=== PATIENT | male | born 1980 | race Caucasian/White ===

== ENCOUNTER 2020-08-04 12:59 | Outpatient (CLI) | payer OTHER, SELFPAY | END 2020-08-04 13:00 | disposition home or self-care (01) | LOC: ANHCOVIDVC 12:59 | PROVIDERS: PCP Family Medicine | DX: Z23 Encounter for immunization (principal) | CPT/HCPCS: 0001A; 91300 ==

== ENCOUNTER 2020-08-25 12:59 | Outpatient (CLI) | payer OTHER, SELFPAY | END 2020-08-25 13:00 | disposition home or self-care (01) | LOC: ANHCOVIDVC 12:59 | PROVIDERS: PCP Family Medicine | DX: Z23 Encounter for immunization (principal) | CPT/HCPCS: 0002A; 91300 ==

== ENCOUNTER → 2021-10-09 11:20 | Outpatient (CLI) | payer OTHER, SELFPAY ==
--- NOTE | ~2021-10-09 | XR_ITS ---
EXAMINATION: XR lumbar spine 2-3V DATE: 10/09/2021 12:21 INDICATION: Dorsalgia TECHNIQUE: Standing anteroposterior, lateral and coned-down lateral lumbosacral views of the lumbar s pine were obtained. COMPARISON: CT abdomen and pelvis dated 11/02/2012 FINDINGS: 9 mm lumbar levocurvature. Sagittal alignment is normal. Vertebral body and disc heights are normal. Moderate the lower lumbar facet osteoarthritis. Sacrum and bilateral sacroiliac joints are normal. De vice projecting over the left buttock with a pair of leads extending cephalad along the left side of the lower thoracic spine and beyond the cephalad margin of the lhsia-mg-odrl. IMPRESSION: 1. Mild lumbar levocurvature with moderate lower lumbar facet osteoarthritis. Reviewed, dictated and finalized at location B.
== END ==
PROVIDERS: PCP Family Medicine; Visit Provider Nurse Practitioner Family
DX: M54.9 Dorsalgia, unspecified (principal); M41.86 Other forms of scoliosis, lumbar region; M47.816 Spondylosis without myelopathy or radiculopathy, lumbar region
CPT/HCPCS: 72100

== ENCOUNTER → 2023-06-07 08:52 | Outpatient (CLI) | payer OTHER, SELFPAY ==
--- NOTE | ~2023-06-07 | XR_ITS ---
XR chest 2V DATE: 06/07/2023 09:29 INDICATION: Cough TECHNIQUE: 2 views COMPARISON: 02/02/2015 2 view chest FINDINGS: Leads extend along the left posterior abdomen and chest hairston into the cervical region. Normal heart size. The left hilum appears mildly prominent and mildly lobular in outline. Consider CT thorax to exclude left hilar mass lesion or adenopathy. No pulmonary infiltrate or consolidation, pleural effusion or pulmonary vascular congestion or pneumo thorax. Included skeletal structures are unremarkable. IMPRESSION: Mildly prominent and lobular left hilum; consider CT thorax with IV contrast material to evaluate for any possible left hilar mass lesion or adenopathy No active pulmonary disease Reviewed, dictated and finalized at location B. OTYPE CARPENTER IMPRESSION: Mildly prominent and lobular left hilum; consider CT thorax with IV contrast material to evaluate for any possible left hilar mass lesion or adeno declan No active pulmonary disease
== END ==
PROVIDERS: PCP Physician Assistant; Visit Provider Physician Assistant
DX: R05.9 Cough, unspecified (principal)
CPT/HCPCS: 71046

== ENCOUNTER → 2023-06-17 08:55 | Outpatient (CLI) | payer OTHER, SELFPAY ==
--- NOTE | ~2023-06-17 | CT_ITS ---
Clinical Indication: Cough CT Scan of the Chest with Contrast: Technique: Contiguous sections were acquired throughout the chest after intravenous administration of 75 cc of Omnipaque 350. Dose reduction technique was used on this scan by utilizing automated exposu re control and iterative reconstruction technique. The dose-length product (DLP) was 585.69 mGy-cm. Findings: There is no evidence of any significant mediastinal, hilar or axillary lymphadenopathy. The mediastin al soft tissues and vascular structures appear unremarkable. There is no evidence of pleural or pericardial effusion. There is patchy left lower lobe airspace consolidation, probable minimal involvement of the lingula a s well. Right lung clear. Images through the upper abdomen reveal no abnormalities. Impression: Patchy left lower lobe and lingular pneumonia. Reviewed, dictated and finalized at location . UNT SERVICE ASSOCIATE Impression: Patchy left lower lobe and lingular pneumonia.
== END ==
PROVIDERS: PCP Physician Assistant; Visit Provider Physician Assistant
DX: R05.9 Cough, unspecified (principal); R53.82 Chronic fatigue, unspecified; R93.89 Abnormal findings on diagnostic imaging of other specified body structures
CPT/HCPCS: 71260; Q9967

== ENCOUNTER 2025-05-05 10:59 | Observation (INO) | payer OTHER, SELFPAY ==
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
--- OUTSIDE RECORDS SUMMARY | 2025-02-16 11:30 | XMS_ITS ---
Author Organization [facility] [place] ([address]) Address [address] [place] [address] Care Team Providers Care Licensed Marriage And Family Therapist Name Role Phone Sandra HENDRIX, Alejandro Primary Care Provider UnavailAlma Sullivan Unavailable [phone] Nathanael Luna [phone] REASON FOR VISIT SCIT (Aeroallergen) Social History Sex Assigned At : Social History Observation Description Sex Assigned At Male Encounters Encounter Location Date Provider Diagnosis [facility] [address] [place] [address] 02/16/2025 Nathanael Luna Plan Of Treatment Next Appt Details Provider Name:Alma whitman, 08/03/2025 10:00:00 AM, [address] [facility], [address], [place], [address], Progress Notes * Nino SLOANDOB:1980 ( 45 yo M)Acc No.[id number]:02/16/2025 SCIT-Aeroallergen Patient: Nino KAPLAN Provider: Oanh Luna MD :1980 A ge:45 Y S ex:Male Date:02/16/2025 Address:[address] [place], [place] [id number] Pcp:Alejandro Flores MD Subjective: * Chief Complaints: * 1 . SCIT (Aeroallergen). * Medical History: Objective: * Vitals: Assessment: Plan: * Treatment: * Billing Information: * Visit Code: * Procedure Codes: * Electronic signature of Santos Luna MD, [facility] on 05/05/2025 at 01:51 PM POTABLE WATER TREATMENT OPERATOR Sign off status: Pending * Provider: Oanh Luna MD Date: 0 02/16/2025 [facility] mauricio/Lupe/eTransmitting on: 1 07/06/2024 01:51 PM POTABLE WATER TREATMENT OPERATOR
[2025-05-05] VITALS (23 sets, daily range): BP systolic 95–132; BP diastolic 56–88; PULSE 71–123; RESP 11–26; TEMP 36.5–36.8; O2SAT 89–100; BMI 30.5; BMI 30.9
--- NOTE | 2025-05-05 11:04 | ECG_ITS ---
Test Date: 2025-05-05 11:08:14 Measurements Intervals [place] Rate: 110 P: 7 KS: 124 QRS: -13 QRSD: 92 T: 18 QT: 316 QTc: 428 Interpretive Statements SINUS TACHYCARDIA POSSIBLE LEFT ATRIAL ENLARGEMENT LEFT VENTRICULAR HYPERTROPHY AND ST-T CHANGE BORDERLINE T WAVE ABNORMALITY- ANTEROLAT/INF LEADS ABNORMAL ECG No previous ECG available for comparison Electronically Signed On 05-05-2025 12:20:09 CROSS CUT SAW OPERATOR by Benito Farrar D.O.
--- NOTE | 2025-05-05 11:25 | PC.NURSE ---
Addendum entered by Leandra Villalta RN 05/05/25 12:38: pt did not take morphine, he took Opana/oxymorphone 10mg Original Note: 5 different pills around 1015 today, took 10-15 pills from each bottle. EMS called CT poison control and said 4 were opioids and 1 was atropine, poison control also reported pt may need a lot of Narcan. pt also took 2-4 pills of Zofran and 1 trazodone. total pills: hydromorphone 2mg morphine 10mg, 15-30 pills diphenoxylate/atropine 2.5mg levorphanol 2mg trazodone 100mg, 1 pill Zofran 8mg, 2-[address] poison control, [phone]
--- NOTE | 2025-05-05 11:31 | ED.GENADULT ---
HPI - General Adult General Chief complaint: Overdose Stated complaint: intentional OD History of Present Illness HPI narrative: 45-year-old male present to the emergency department for evaluation after an intentional drug overdose for a suicide attempt. Patient does have worsening depression secondary to complex regional pain syndrome. Patient states he does not currently have follow-up with a psychiatrist or a therapist. Patient states he took the medications at approximately 10:15 a.m. this morning which did include 1 trazodone and multiple of his opiates and atropine. Upon arrival to the emergency department patient was alert and appropriate. Patient's heart rate was in the 130s. Related Data Home Medications ?Medication ?Instructions ?Recorded ?Confirmed ?Last Taken ?Type buprenorphine HCl 750 mcg buccal 750 mcg buccal Q12H 06/23/19 05/05/25 05/05/25 History film ([place]) fluticasone propionate 50 1 spray intranasal DAILY 10/04/21 05/05/25 Unknown History mcg/actuation nasal spray,suspension levorphanol tartrate 2 mg tablet 2 mg PO .Q6HR PRN pain 10/04/21 05/05/25 05/05/25 History cetirizine 10 mg tablet (24Hour 5 mg PO DAILY 05/05/25 05/05/25 05/05/25 History Allergy) clonazepam 0.5 mg tablet 0.5 mg PO DAILY 05/05/25 05/05/25 05/05/25 History duloxetine 60 mg capsule,delayed 60 mg PO DAILY 05/05/25 05/05/25 05/05/25 History release (Cymbalta) Allergies Allergy/AdvReac Type Severity Reaction Status Date / Time amoxicillin AdvReac Intermediate Rash Verified 05/05/25 11:32 sumatriptan AdvReac Intermediate Depression Verified 05/05/25 11:32 shell fish Allergy Severe Anaphylactic Uncoded 05/05/25 11:32 Shock Review of Systems Review of Systems: All systems reviewed & are unremarkable except as noted in HPI and below PMFSH Past Medical History Medical History CRPS (complex regional pain syndrome type I) Low testosterone Hypogonadism Spinal cord stimulator status Plantar fasciitis Wartenberg syndrome Family History Family History (Updated 05/05/25 @ 15:45 by Caroline Carbajal RN) Father Diabetes mellitus Morbid obesity Acute myocardial infarction CHF (congestive heart failure) A-fib Chronic kidney disease Parkinson disease AD (Alzheimer's disease) Mother Diabetes mellitus Sibling No problems noted. Sibling multiple system failure. 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 EYES: PERRLA/EOMI, conjunctivae clear. NOSE: Normal no drainage EARS:TMS clear with good light reflex. THROAT: Pharynx clear, no exudate. NECK: Supple. No adenopathy, no masses. RESPIRATORY: Airway patent, respirations nonlabored. Clear to auscultation bilaterally, no rales, rhonchi, wheezing. CARDIOVASCULAR: Regular rate and rhythm without murmurs rubs or gallops. ABDOMINAL: Soft, nontender, nondistended, normal bowel sounds MUSCULOSKELETAL: Moves all extremities. Strength/ROM intact, No edema, No calf tenderness. NEURO: Alert. Cranial nerves II through XII intact. Good gait. Good coordination SKIN: Warm, dry. Normal Color PSYCHIATRIC: Flat affect Course Vital Signs Vital signs: Vital Signs Temperature 98.2 F 05/05/25 11:04 Pulse Rate 118 H 05/05/25 11:04 Respiratory Rate 21 H 05/05/25 11:04 Blood Pressure 131/85 05/05/25 11:04 Pulse Oximetry 93 05/05/25 11:04 Oxygen Delivery Room Air 05/05/25 11:04 Temperature 98.2 F 05/05/25 15:00 Pulse Rate 89 05/05/25 16:00 Respiratory Rate 11 L 05/05/25 15:00 Blood Pressure 110/88 05/05/25 15:00 Pulse Oximetry 93 05/05/25 16:08 Oxygen Delivery Nasal Cannula 05/05/25 16:08 Oxygen Flow Rate 2 05/05/25 16:08 MDM MDM Narrative Medical decision making narrative: 45-year-old male presents emergency department for evaluation after having intentional overdose. Patient is currently afebrile and leukocytosis hemoglobin of 15.7. Patient has INR of 1.0. No significant acute abnormalities on his CMP UA was negative for infection. Patient was negative for salicylates and Tylenol. Ethanol was negative. Patient did take multiple opioids. Patient was negative for influenza RSV and for COVID. Patient did require 2 mg of IV Narcan by EMS were quiet a 2nd dose here this was approximately 1.5 hours after his initial dose. 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 Case was discussed with hospitalist. Patient states he did take these medications in attempt to harm self and patient was suicidal. Differential Diagnosis Differential Diagnosis: Intentional overdose, opiate overdose, atropine overdose, salicylate overdose, acetaminophen overdose Lab Data 05/05/25 11:34 05/05/25 11:34 Labs: Lab Results 05/05/25 05/05/25 05/05/25 Range/Units 11:34 11:34 11:34 WBC 7.3 (4.5-10.0) K/mm3 RBC 4.98 (4.6-6.20) M/mm3 Hgb 15.7 (14.0-18.0) g/dL Hct 45.5 (42.0-52.0) % MCV 91.4 (80-100) fl MCH 31.5 (26-34) pg MCHC 34.5 (32-36) g/dl RDW 13.1 (11.5-14.5) % Plt Count 243 (150-375) k/mm3 MPV 9.7 (7.4-10.4) fl Immature Gran % (Auto) 0.5 (0-0.5) % Neut % (Auto) 77.3 H (45.5-73.1) % Lymph % (Auto) 11.4 L (18.3-44.2) % Green % (Auto) 7.8 (2.6-8.5) % Eos % (Auto) 2.5 (0-4.4) % Baso % (Auto) 0.5 (0.2-1.2) % Lymph # (Auto) 0.83 L (0.9-3.2) K/mm3 Green # (Auto) 0.6 (0.1-0.6) K/mm3 Eos # (Auto) 0.2 (0-0.3) K/mm3 Baso # (Auto) 0.0 (0.0-0.1) K/mm3 Abs Immat Gran (auto) 0.04 H (0.00-0.031) K/mm3 Absolute Neuts (auto) 5.7 (1.3-6.7) K/mm3 Absolute Nucleated RBC 0.000 (0.0-0.012) K/mm3 Nucleated RBC % 0.0 (0.0-0.2) % PT 13.5 (11.1-14.7) Seconds INR 1.0 APTT 29.0 (22.3-36.8) Seconds Sodium 138 (137-145) mmol/L Potassium 3.4 (3.4-5.0) mmol/L Chloride 104 (98-107) mmol/L Carbon Dioxide 24 (22-30) mmol/L Anion Gap 10 (4-12) mmol/L BUN 15 (9-20) mg/dL Creatinine 0.96 (0.7-1.3) mg/dL Estim Creat Clear Calc 88 ml/min Estimated GFR > 60 (59 - ) Glucose 151 H (65-110) mg/dL Lactic Acid 1.6 (0.7-2.0) mmol/L Calcium 9.0 (8.4-10.2) mg/dL Total Bilirubin 0.8 (0.2-1.3) mg/dL AST 24 (17-59) U/L ALT 28 (6-50) U/L Alkaline Phosphatase 71 (38-126) U/L Total Protein 7.9 (6.3-8.2) g/dL Albumin 4.2 (3.5-5.1) g/dL Urine Color (Yellow) Urine Appearance (Clear) Urine pH (5.0-9.0) Ur Specific Bailey (1.001-1.035) Urine Protein (Negative) mg/dL Urine Glucose (UA) (Negative) mg/dL Urine Ketones (Negative) mg/dL Ur Blood (Man) (Negative) Urine Nitrate (Negative) Urine Bilirubin (Negative) Urine Urobilinogen (<2.0) mg/dL Leukocyte Esterase Rfl (Negative) BECKY/UL Salicylates < 1.0 L Cancelled (2-20) mg/dL Urine Opiates Screen (Negative) Urine Methadone Screen (Negative) Acetaminophen Cancelled < 10 L Ur Barbiturates Screen (Negative) Ur Phencyclidine Scrn (Negative) Ur Amphetamine Screen (Negative) U Benzodiazepines Scrn (Negative) Urine Cocaine Screen (Negative) U Cannabinoids Screen (Negative) Ethyl Alcohol < 10 (<10) mg/dL Influenza A (RT-PCR) (Negative) Influenza B (RT-PCR) (Negative) RSV (RT-PCR) (Negative) SARS-CoV-2 RNA (RT-PCR) (Negative) 05/05/25 05/05/25 Range/Units 11:36 12:05 WBC (4.5-10.0) K/mm3 RBC (4.6-6.20) M/mm3 Hgb (14.0-18.0) g/dL Hct (42.0-52.0) % MCV (80-100) fl MCH (26-34) pg MCHC (32-36) g/dl RDW (11.5-14.5) % Plt Count (150-375) k/mm3 MPV (7.4-10.4) fl Immature Gran % (Auto) (0-0.5) % Neut % (Auto) (45.5-73.1) % Lymph % (Auto) (18.3-44.2) % Green % (Auto) (2.6-8.5) % Eos % (Auto) (0-4.4) % Baso % (Auto) (0.2-1.2) % Lymph # (Auto) (0.9-3.2) K/mm3 Green # (Auto) (0.1-0.6) K/mm3 Eos # (Auto) (0-0.3) K/mm3 Baso # (Auto) (0.0-0.1) K/mm3 Abs Immat Gran (auto) (0.00-0.031) K/mm3 Absolute Neuts (auto) (1.3-6.7) K/mm3 Absolute Nucleated RBC (0.0-0.012) K/mm3 Nucleated RBC % (0.0-0.2) % PT (11.1-14.7) Seconds INR APTT (22.3-36.8) Seconds Sodium (137-145) mmol/L Potassium (3.4-5.0) mmol/L Chloride (98-107) mmol/L Carbon Dioxide (22-30) mmol/L Anion Gap (4-12) mmol/L BUN (9-20) mg/dL Creatinine (0.7-1.3) mg/dL Estim Creat Clear Calc ml/min Estimated GFR (59 - ) Glucose (65-110) mg/dL Lactic Acid (0.7-2.0) mmol/L Calcium (8.4-10.2) mg/dL Total Bilirubin (0.2-1.3) mg/dL AST (17-59) U/L ALT (6-50) U/L Alkaline Phosphatase (38-126) U/L Total Protein (6.3-8.2) g/dL Albumin (3.5-5.1) g/dL Urine Color Yellow (Yellow) Urine Appearance Clear (Clear) Urine pH 6.0 (5.0-9.0) Ur Specific Bailey 1.011 (1.001-1.035) Urine Protein Negative (Negative) mg/dL Urine Glucose (UA) Negative (Negative) mg/dL Urine Ketones Negative (Negative) mg/dL Ur Blood (Man) Negative (Negative) Urine Nitrate Negative (Negative) Urine Bilirubin Negative (Negative) Urine Urobilinogen 0.2 (<2.0) mg/dL Leukocyte Esterase Rfl Negative (Negative) BECKY/UL Salicylates (2-20) mg/dL Urine Opiates Screen Positive A (Negative) Urine Methadone Screen Negative (Negative) Acetaminophen Ur Barbiturates Screen Negative (Negative) Ur Phencyclidine Scrn Negative (Negative) Ur Amphetamine Screen Negative (Negative) U Benzodiazepines Scrn Negative (Negative) Urine Cocaine Screen Negative (Negative) U Cannabinoids Screen Negative (Negative) Ethyl Alcohol (<10) mg/dL Influenza A (RT-PCR) Negative (Negative) Influenza B (RT-PCR) Negative (Negative) RSV (RT-PCR) Negative (Negative) SARS-CoV-2 RNA (RT-PCR) Negative (Negative) Critical Care Time Critical Care Time Indication: Overdose Time Type: Intermittent Initial evaluation, discuss w/ involved parties, attempting to gather old records: 10 minutes Documenting medical record: 10 minutes Review of results (EKG's, labs, imaging): 5 minutes Serial repeat bedside evaluation: 10 minutes Discussing case with multiple memebers of the care team and consultants: 5 minutes Total Critical Care Time: 40 Discharge Plan Discharge Clinical Impression: Intentional overdose Patient Disposition: Still a Patient Condition: Critical
[2025-05-05 11:51] LABS: Hematocrit 45.5 % (42.0-52.0); Hemoglobin 15.7 g/dL (14.0-18.0); Immature Granulocyte Percent A 0.5 % (0-0.5); Lymphocytes Absolute Auto 0.83 K/mm3 (0.9-3.2); Mean Corpuscular HGB Conc 34.5 g/dl (32-36); Mean Corpuscular Hemoglobin 31.5 pg (26-34); Mean Corpuscular Volume 91.4 fl (80-100); Nucleated Red Blood Cells Absolute Auto 0.000 K/mm3 (0.0-0.012); Nucleated Red Blood Cells Perc 0.0 % (0.0-0.2); Platelet Count Result 243 k/mm3 (150-375); Red Blood Count 4.98 M/mm3 (4.6-6.20); White Blood Count 7.3 K/mm3 (4.5-10.0)
[2025-05-05] MEDS: NALOXONE HCL INJ 2 MG/2 ML AMP IV PUSH (12:01)
[2025-05-05 12:02] LABS: Alanine Aminotransferase 28 U/L (6-50); Albumin Level 4.2 g/dL (3.5-5.1); Alkaline Phosphatase 71 U/L (38-126); Anion Gap 10 mmol/L (4-12); Aspartate Amino Transferase 24 U/L (17-59); Bilirubin,Total 0.8 mg/dL (0.2-1.3); Blood Urea Nitrogen 15 mg/dL (9-20); Calcium 9.0 mg/dL (8.4-10.2); Carbon Dioxide 24 mmol/L (22-30); Chloride 104 mmol/L (98-107); Estimated CRCL calculation 88 ml/min; Estimated Glomerular Filt Rate > 60; Glucose 151 mg/dL (65-110); Potassium 3.4 mmol/L (3.4-5.0); Sodium 138 mmol/L (137-145); Total Protein 7.9 g/dL (6.3-8.2)
[2025-05-05 12:03] LABS: Acetaminophen < 10 ug/mL (10-30); INR 1.0; Prothrombin Time 13.5 Seconds (11.1-14.7); Salicylate < 1.0 mg/dL (2-20)
[2025-05-05 12:04] LABS: Partial Thromboplastin Time 29.0 Seconds (22.3-36.8)
[2025-05-05 12:29] LABS: Influenza A QL RT-PCR Negative (Negative); Influenza B QL RT-PCR Negative (Negative); RSV RNA, RT-PCR Negative (Negative); SARS-CoV-2 RNA PCR Negative (Negative)
[2025-05-05 12:30] LABS: Add Urine Microscopic? NO; Appearance Urine Clear (Clear); Glucose Urine UA Negative (Negative); Leukocyte Esterase Ur Negative LEU/UL (Negative); Nitrate Urine Negative (Negative); Specific Grav Ur 1.011 (1.001-1.035)
--- NOTE | 2025-05-05 12:38 | PC.NURSE ---
this RN called [place] poison control at 1230 and spoke to April. 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 the oxymorphone, hydrocodone, and levorphanol all have a peak of 1hr max. was advised to watch pt until he became his normal/stable self
[2025-05-05] MEDS: LACTATED RINGERS 1,000 ML 999 ML (12:42)
[2025-05-05 13:03] LABS: Cannabinoid Screen Urine Negative (Negative)
--- OUTSIDE RECORDS SUMMARY | 2025-05-05 13:51 | XMS_ITS | Clinical Summary ---
Author Organization [facility] Address [address] [place] [address] Care Team Providers Care Radio Presenter Name Role Phone Alejandro Flores MD Primary Care Provider Source Comments [facility],non-owned Affiliates and Associated Physician Practices is amultiple site organization consisting of ambulatory clinics and hospital sitesin [place], [place]. This disclosure is being madepursuant to the Care Everywhere program and may not contain all information available regarding this patient. Last updated 18.[facility] Allergies Active Allergy Reactions Criticality Noted Date Comments Augmentin GI Discomfort 04/26/2016 Medications * This document contains information received from the source organization and may not represent a complete record from that organization. * Be aware that medications may not be up to date on this document. Alwaysverify current medications with the patient. 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 Gender Identity Not on file Sexual Orientation Not on file Last Filed Vital Signs Vital Sign Reading Time Taken Comments Blood Pressure 130/82 04/26/2016 11:33 AM WATERWORKS PUMP STATION OPERATOR Pulse 120 04/26/2016 11:33 AM WATERWORKS PUMP STATION OPERATOR Temperature 36.5 C (97.7 F) 04/26/2016 11:33 AM WATERWORKS PUMP STATION OPERATOR Respiratory Rate 16 04/26/2016 11:33 AM WATERWORKS PUMP STATION OPERATOR Oxygen Saturation 96% 04/26/2016 11:33 AM WATERWORKS PUMP STATION OPERATOR Inhaled Oxygen Concentration - - Weight 81.6 kg (180 lb) 04/26/2016 11:33 AM WATERWORKS PUMP STATION OPERATOR Height 177.8 cm (5' 10) 04/26/2016 11:33 AM WATERWORKS PUMP STATION OPERATOR Body Mass Index 25.83 04/26/2016 11:33 AM WATERWORKS PUMP STATION OPERATOR Plan of Treatment Health Maintenance Due Date Last Done Comments COLOGUARD (AGES 45-75) - COL ON CA SCREENING 1980 COLON MONITORING 1980 COLONOSCOPY - COLON CA SCREENING 1980 CT COLONOGRAPHY - COLON CA SCREENING 1980 Colorectal Cancer Screening 1980 FIT - COLON CA SCREENING 1980 FLEX SIG - COLON CA SCREENING 1980 LIPID TESTING 1980 HIV SCREENING 01/07/1995 HEPATITIS C SCREENING 01/03/1998 DTAP/TDAP/TD VACCINES (1 - Tdap) 01/07/1999 HEPATITIS B VACCINE (1 of 3 - 19+ 3-dose series) 01/07/1999 HPV VACCINE (1 - 3-dose SCDM series) 01/07/2007 DEPRESSION SCREENING 05/20/2024 COVID-19 VACCINE (1 - 2024-2 6 season) 2025 INFLUENZA VACCINE (#1) 2025 ZOSTER VACCINE (1 of 2) 01/07/2030 HIB VACCINE Aged Out No longer eligi ble based on patient's age to complete this topic MENINGOCOCCAL (Group B) VACC INE SHARED DECISION-MAKING Aged Out No longer eligibl e based on patient's age to complete this topic MENINGOCOCCAL GROUPS A/C/Y/W VACCINE Aged Out No longer eligible b ased on patient's age to complete this topic PNEUMOCOCCAL VACCINE Aged Out No long er eligible based on patient's age to complete this topic Insurance [employer] Address: [facility] [id number] [place] [address] Care Teams Radio Presenter Relationship Specialty Start Date End Date Alejandro Flores MD [address] [place] [address] PCP - General Family Medicine 04/26/16
--- OUTSIDE RECORDS SUMMARY | 2025-05-05 13:51 | XMS_ITS | Clinical Summary ---
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 Social History Tobacco Use Types Packs/Day Years Used Date Smoking Tobacco: Never Assessed Sex and Gender Information Value Date Recorded Sex Assigned at Not on file Legal Sex Male 1:28 PM CDT Gender Identity Not on file Sexual Orientation Not on file Plan of Treatment Health Maintenance Due Date Last Done Comments Hepatitis C Virus (HCV) Screening 1980 TdaP Immunization 1980 Hepatitis B Immunization (1 of 3 - 19+ 3-dose series) 01/07/1999 Cologuard 01/07/2025 Colonoscopy 01/07/2025 Colorectal Cancer Screening 01/07/2025 Immunochemical Fecal Occult Blood 01/07/2025 Influenza Immunization (#1) 2025 SARS-COV-2 Immunization ( season) 2025 Respiratory Syncytial Virus (RSV) Immunization (Adult) (1 - 1-dose 75+ series) 01/07/2055 Human Papillomavirus (HPV) Immunization (No Doses Required) Completed Meningococcal Immunization (ACWY) Aged Out No longer eligible based on patient's age to complete this topic Pneumococcal Immunization Combined Aged Out No longer eligible based on patient's age to complete this topic Rotavirus Immunization Aged Out No lo nger eligible based on patient's age to complete this topic Insurance [employer] C[employer] Care Teams Wire Rigger Relationship Specialty Start Date End Date Provider, None [place] PCP - General 01/12/16
--- OUTSIDE RECORDS SUMMARY | 2025-05-05 13:51 | XMS_ITS | Clinical Summary ---
Author Organization [facility] Address [address] [place] [id number] Care Team Providers Care Belt Turner Name Role Phone Victor Hugo Esteves NP Unavailable [phone] Chris England MD Unavailable Alejandro Flores MD Primary Care Provider Allergies Active Allergy Reactions Criticality Noted Date Comments Amoxicillin-Pot Clavulanate Stomach upset Low 04/26 Other Sneezing Low 12/26/2021 Seasonal Shellfish Containing Products Hives,Itching Medium [id number] Antimigraine Agents Anxiety Low 0 12/31/2023 Medications gabapentin (NEURONTIN) 600 mg tablet Take 1 tablet (600 mg total) by mouth 2 (two) times a day Active fluticasone propionate (FLONASE) 50 mcg/actuation nasal spray Administer 1 spray into each nostril as needed for rhinitis Active Nurtec ODT tablet,disintegra ting DISSOLVE 1 TABLET BY MOUTH NEEDED FOR MIGRAINE HEADACHE A SINGLE DOSE 11/30/[address] (CYMBALTA) 30 mg capsule Take 1 capsule (30 mg total) by mouth daily 01/10/20 23 Active albuterol HFA (PROVENTIL HFA,VENTOLIN HFA,PROAIR HFA) 90 mcg/actuation inhaler every 6 hours Active azelastine (ASTELIN) 137 mcg (0.1 %) nasal spray every 12 hours 10/21/19 24 Active testosterone cypionate (DEPO-TESTOTERONE ) 200 mg/mL injection INJECT 1 ML INTO THE MUSCLE EVERY OTHER WEEK 10/24/19 24 Active EpiPen 2-Rudy 0.3 mg/0.3 mL auto-injection syringe as directed intramuscularly once for 1 days 10/21/19 24 Active ProChamber spacer USE DIRECTED PER ASTHMA ACTION PLAN 10/22/19 24 Active fexofenadine (Haritha Allergy) 60 mg tablet daily Active DULoxetine DR (CYMBALTA) 60 mg capsule Take 1 capsule (60 mg total) by mouth every morning 12/02/19 24 Active montelukast (SINGULAIR) 10 mg tablet Take 1 tablet (10 mg total) by mouth daily 03/10/20 24 Active cyclobenzaprine (FLEXERIL) 10 mg tablet Take 1 tablet (10 mg total) by mouth 3 (three) times a day as needed for muscle spasms 03/12/20 Active Trelegy Ellipta 200-62.5-25 mcg inhaler 1 puff daily Active famotidine (PEPCID) 40 mg tablet 0.5 tablets (20 mg total) 08/24/19 25 Active levorphanol (LEVODROMORAN) 2 mg tabletIndications :Complex regional pain syndrome type 1 of right upper extremity,Chronic pain syndrome,Neuralgi a Take 1 tablet (2 mg total) by mouth 2 (two) times a day as needed for pain 60 tablet 10/06/19 25 Active buprenorphine (Belbuca) 750 mcg film buccal filmIndications:C hronic pain syndrome,Complex regional pain syndrome type 1 of right upper extremity,Neuralg ia Apply 1 each (750 mcg total) to cheek every 12 (twelve) hours 60 each 1 04/08/20 25 2025 Active clonazePAM (KlonoPIN) 0.25 mg disintegrating tablet DISSOLVE ONE TABLET ON THE TONGUE ONCE DAILY. 03/26/20 25 Active benzonatate (TESSALON) 200 mg capsuleIndication s:Lower respiratory infection (e.g., bronchitis, pneumonia, pneumonitis, pulmonitis) Take 1 capsule (200 mg total) by mouth 3 (three) times a day as needed for cough 30 capsule 05/03/20 25 Active azithromycin (ZITHROMAX) 250 mg tabletIndications :Lower respiratory infection (e.g., bronchitis, pneumonia, pneumonitis, pulmonitis) Take 2 tablets the first day, then 1 tablet daily for 4 days. 6 tablet 05/03/20 25 Active doxycycline (VIBRAMYCIN) 100 mg capsuleIndication s:Lower respiratory infection (e.g., bronchitis, pneumonia, pneumonitis, pulmonitis) Take 1 tablet/capsule (100 mg total) by mouth 2 (two) times a day for 5 days 10 tablet/caps ule 05/03/20 25 2024 Active clonazePAM (KlonoPIN) 0.5 mg tablet Take 1 tablet (0.5 mg total) by mouth 3 (three) times a day Taking 0.25 in am and in the pm. 05/05/20 20 2024 Disconti nued(Alt ernate therapy) benzonatate (TESSALON) 200 mg capsuleIndication s:Acute viral syndrome Take 1 capsule (200 mg total) by mouth 3 (three) times a day as needed for cough 30 capsule 12/31/19 24 2024 Disconti nued(The rapy complete d) methylPREDNISolon e (Medrol, Rudy,) 4 mg DosepackIndicatio ns:Lower respiratory infection (e.g., bronchitis, pneumonia, pneumonitis, pulmonitis) follow package directions 1 packet 05/03/20 25 2024 Disconti nued(Alt ernate therapy) Active Problems Problem Noted Date Diagnosed Date Acute cough 04/30/2023 Assessment & Plan (04/30/2023 12:03 PM SITE PROMOTION AGENT): Vital signs stable, no respiratory distress, nontoxic appearance, lungs CTAB on exam, 96% on RA Chest xray showing mild atelectasis and scarring noted in the mid to lower right lung. No definite evidence of focal consolidation. Pt given incentive spirometer Supportive care, rest, clear sugar-free fluids (water), steam inhalation/humidifier Tessalon prn Continue prednisone as prescribed Continue albuterol inhaler prn F/u with PCP for repeat chest xray if no improvement with medications or worsening symptoms Left-sided low back pain without sciatica 2020 Long-term current use of opiate analgesic 2017 Right arm pain 06/03/2017 Right hand pain 06/03/2017 Complex regional pain syndro me type 1 of right upper extremity 06/03/2017 Depression, recurrent 06/03/2017 Anxiety 06/03/2017 Constipation due to opioid therapy 06/03/2017 Undifferentiated somatoform disorder 01/20/2016 Injury of ulnar nerve 08/09/2015 Injury of radial nerve 08/09/2015 Injury of cutaneous sensory nerve at forearm lev el 08/09/2015 Complex regional pain syndrome of upper extremit y 11/17/2014 Memory impairment 10/26/2014 Pain in wrist 10/26/2014 Chronic pain 10/26/2014 Pain in extremity 10/26/2014 Neuralgia 10/26/2014 Encounters Date Type Department Care Team Description 05/03/2025 9:05 AM SITE PROMOTION AGENT Ancillary Procedure [facility] at [address] [phone] Acute viral syndrome 05/03/2025 8:45 AM SITE PROMOTION AGENT Office Visit [facility] at [address] [phone] Carlotta Mcintosh NP Lower respiratory infection (e.g., bronchitis, pneumonia, pneumonitis, pulmonitis) (Primary Dx); Pneumonia of left upper lobe due to infectious organism 05/03/2025 Results Follow-Up [facility] at [address] [phone] Carlotta Mcintosh NP XR Chest PA Lateral 2 Views 03/25/2025 11:30 AM SITE PROMOTION AGENT - 03/25/2025 11:59 PM SITE PROMOTION AGENT Hospital Encounter [facility] [address] [place] [address] Victor Hugo Esteves NP Long-term current use of opiate analgesic (Primary Dx); Right arm pain; Complex regional pain syndrome type 1 of right upper extremity; Chronic pain syndrome Discharge Disposition: Discharge to home or self care from Last 3 Months Immunizations Immunization Administration Dates Next Due Influenza, Quadrivalent, Jennifer l Culture-based MDCK, Preservative Free, Antibiotic Free, Intramuscular 06/18/2019 Influenza, Trivalent, IM (MDV) 03/11/2014,2011 Influenza, Trivalent, Preservative Free, Intramu scular 05/09/2016,04/08/2015 Surgical History Surgery Date Site/Laterality Comments WRIST SURGERY SPINAL CORD STIMULATOR IMPLANT trial in 2016-did not help and removal WISDOM TOOTH EXTRACTION Medical History Medical History Date Comments CRPS (complex regional pain syndrome type I) Anxiety Depression Extremity pain right arm Headache Neck pain Reflex sympathetic dystrophy Family History Medical History Relation Name Comments Diabetes Father Diabetes Mother Relation Name Status Comments Father Mother Alive Social History Tobacco Use Types Packs/Day Years Used Date Smoking Tobacco: Never Passive Smoke Exposure: Never Smokeless Tobacco: Never Alcohol Use Standard Drinks/Week Comments No 0 (1 standard drink = 0.6 oz pur e alcohol) PHQ-2 Answer Date Recorded PHQ-2 Score 2 02/19/2019 Sex and Gender Information Value Date Recorded Sex Assigned at Not on file Legal Sex Male 9:21 PM SITE PROMOTION AGENT Gender Identity Male 04/04/2020 4:09 PM SITE PROMOTION AGENT Sexual Orientation Straight 04/04/2020 4: 09 PM SITE PROMOTION AGENT Last Filed Vital Signs Vital Sign Reading Time Taken Comments Blood Pressure 128/70 05/03/2025 8:37 AM SITE PROMOTION AGENT Pulse 113 05/03/2025 8:37 AM SITE PROMOTION AGENT Temperature 36.4 C (97.5 F) 05/03/2025 8:37 AM SITE PROMOTION AGENT Respiratory Rate 28 05/03/2025 8:37 AM SITE PROMOTION AGENT Oxygen Saturation 96% 05/03/2025 8:37 AM SITE PROMOTION AGENT Inhaled Oxygen Concentration - - Weight 96.6 kg (213 lb) 05/03/2025 8:37 AM SITE PROMOTION AGENT Height 177.8 cm (5' 10) 05/03/2025 8:37 AM SITE PROMOTION AGENT Body Mass Index 30.56 05/03/2025 8:37 AM SITE PROMOTION AGENT Plan of Treatment Health Maintenance Due Date Last Done Comments Colon Cancer Screening-Colonoscopy 1980 Hepatitis C Screening 1980 DTaP/Tdap/Td Vaccine (1 - Tdap) 01/07/1991 Varicella Vaccines (1 of 2 - 13+ 2-dose series) 01/07/1993 Hepatitis B Screening 01/07/1998 Regular Well Visit/Exam 18-64 01/07/1998 HPV Vaccines (1 - 3-dose SCDM series) 01/07/2007 Depression Screening 02/20/2020 02/19/2019, 02/19/2019, 09/16/2018, Additional history exists Covid-19 Vaccine ( season) 2025 08/25/2020, 08/04/2020 Influenza Vaccine (#1) 2025 , 05/09/2016, 04/08/2015, Additional history exists Pneumococcal vaccine <65 Aged Out 12/02/2023 No longer eligible based on patient's age to complete this topic Goals Goal Patient Goal Type Associated Problems Recent Progress Patient-Stated? Author Increase physical activity Exercise Connie Lassiter, RN Note: He was encouraged to continue to do as much as possible with his right arm. Medical Devices Implanted Type Area Toll Service Observer Device Identifier Shelf Expiration Date Model / Serial / Lot Lead 74cm Avista Mri Safe - [id number] - [id number] Implanted:Qty: 1 on 06/30/2020 by Chris England MD at [facility] N/A: Spine Cervical [employer] Lucio 04/07/2022 SC-2408-7 4 / [id number] / Lead 74cm [employer]ista Mri Safe - [id number] - [id number] Implanted:Qty: 1 on 06/30/2020 by Chris England MD at [facility] N/A: Spine Cervical [employer] Lucio 04/07/2022 SC-2408-7 4 / [id number] / [employer] Sc-4319 Clik X Mri [place] Lead - [id number] Implanted:Qty: 1 on 06/30/2020 by Chris England MD at [facility] N/A: Back [employer] Lucio 02/12/2022 SC-4319 / / [id number] [employer] Sc-1200 Precison Montage Kit Generator Neurostimulator Sterile Disposable Latex Free - [id number] - [id number] Implanted:Qty: 1 on 06/30/2020 by Chris England MD at [facility] N/A: Back [employer] Lucio 05/04/2022 SC-1200 / [id number] / [employer] Lucio Sc-6412-03 Precision Charge Kit Neurostimulator - [id number] - [id number] Implanted:Qty: 1 on 06/30/2020 by Chris England MD at [facility] N/A: Back [employer] Lucio SC-6412-0 3 / [id number] / Procedures Procedure Name Priority Date/Time Associated Diagnosis Comments XR CHEST PA LATERAL 2 VIEWS Schedule SEAN, Read SEAN (Appt Today, Awaiting Results) 05/03/2025 9:11 AM SITE PROMOTION AGENT Acute viral syndrome POC INFLUENZA A/B, COVID-19 ANTIGEN Routine 05/03/2025 9:01 AM SITE PROMOTION AGENT Lower respiratory infection (e.g., bronchitis, pneumonia, pneumonitis, pulmonitis) from Last 3 Months Results * XR Chest PA Lateral 2 Views (05/03/2025 9:11 AM SITE PROMOTION AGENT) Anatomical Region Laterality Modality Body, Chest N/A Digital Radiogra phy 05/03/2025 11:0 8 AM SITE PROMOTION AGENT Impressions 05/03/2025 11:08 AM SITE PROMOTION AGENT Left upper lobe pneumonia. Recommend six-week radiographic follow-up to ensure resolution. Electronically signed by: Dmitri Nelson MD Narrative 05/03/2025 11:08 AM SITE PROMOTION AGENT EXAMINATION: XR CHEST PA LATERAL 2 VIEWS HISTORY: cough TECHNIQUE: Frontal and lateral views of the chest. COMPARISON: 04/30/2023 FINDINGS: New extensive opacities throughout the left upper lobe likely representing pneumonia. Recommend short-term follow-up to ensure resolution. No sizable pleural effusion or pneumothorax. The heart size is normal. Procedure Note Dmitri Nelson MD - 05/03/2025 EXAMINATION: XR CHEST PA LATERAL 2 VIEWS HISTORY: cough TECHNIQUE: Frontal and lateral views of the chest. COMPARISON: 04/30/2023 FINDINGS: New extensive opacities throughout the left upper lobe likely representing pneumonia. Recommend short-term follow-up to ensure resolution. No sizable pleural effusion or pneumothorax. The heart size is normal. IMPRESSION: Left upper lobe pneumonia. Recommend six-week radiographic follow-up to ensure resolution. Electronically signed by: Dmitri Nelson MD Carlotta Mcintosh PARTS ADVISOR IMG XR PROCEDURES Final Result * POC Influenza A/B, COVID-19 antigen (05/03/2025 9:01 AM SITE PROMOTION AGENT) Influenza A Ag, POC Negative Negative [facility] Influenza B Ag, POC Negative Negative [facility] COVID-19 Ag POC Presumptive Negative Presumptive Negative, Invalid [facility] Nasal 05/03/2025 9:01 AM SITE PROMOTION AGENT Carlotta Mcintosh NP POINT OF CARE TEST ORDERABLES Final Result [facility] [address] from Last 3 Months Insurance [facility] CIGNA CIGNA [facility] CHOICE PLUS CIGNA Care Teams Belt Turner Relationship Specialty Start Date End Date Alejandro Flores MD [address] [place], [place] [phone] PCP - General Family Medicine 12/03/24 [place] [address] [address] [place] [address] Nurse Practitioner Pain Management 03/25/24 [place] [address] [address] [place] [address] Consulting Physician Pain Management 07/22/24
--- OUTSIDE RECORDS SUMMARY | 2025-05-05 13:51 | XMS_ITS | Patient Health Record ---
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) TRIPTAN FAMILY (uncoded) anxiety, hallucinations Allergy Active amoxicillin Amoxicillin stomach upset Drug Allergy Active Results Component Value Reference Range Notes Spirometry Reviewed date:02/18/2025 08:48:53 AM Interpretation:Normal Performing Lab: Notes/Report: Normal SpiroPreBronchodilator_FVC 4.23 SpiroPostBronchodilator_FEF25_75 0 SpiroPreBronchodilator_FEF25_75 5.52 SpiroPreBronchodilator_FEV1 3.75 SpiroPrecentPredictionPost_FEF25_75 0 SpiroPrecentPredictionPost_FEV1 0 SpiroPrecentPredictionPost_FEV1_OVER_FVC 0 SpiroPrecentPredictionPost_FVC 0 SpiroPrecentPredictionPre_FEF25_75 136.3 SpiroPrecentPredictionPre_FEV1 92.1 SpiroPrecentPredictionPre_FEV1_OVER_FVC 110 SpiroPrecentPredictionPre_FVC 83.6 SpiroPredicted_FEF25_75 4.05 SpiroPreBronchodilator_FEV1_OVER_FVC 88.56 SpiroPreBronchodilator_PEF 9.92 SpiroPostBronchodilator_FVC 0 SpiroPostBronchodilator_FEV1 0 SpiroPostBronchodilator_FEV1_OVER_FVC 0 SpiroPostBronchodilator_PEF 0 SpiroPredicted_FVC 5.06 SpiroPredicted_FEV1 4.07 SpiroPredicted_FEV1_OVER_FVC 80.54 SpiroPredicted_PEF 9.15 Reason For Referral No Information Medications Medication SIG (Take, Route, Frequency, Duration) Notes Start Date End Date Status Belbuca 750 MCG Buccal; Duration: 30 Days Active clonazePAM 0.5 MG TAKE 1 TABLET BY MOUTH IN THE MORNING AND HALF A TABLET BY MOUTH IN THE EVENING NEEDED Oral; Duration: 30 Days Active SIT (Traditional) variable - see record per schedule subcutaneous per schedule; Duration: 999 days 02/16/2025 Active Testosterone Cypionate 200 MG/ML Intramuscular; Duration: 70 Days Active Montelukast Sodium 10 MG TAKE 1 TABLET BY MOUTH 60 MINUTES PRIOR TO SCIT INSTRUCTED; Duration: 90 Active Nurtec 75 MG 1 tablet on the tongue and allow to dissolve Orally 02/16/2025 Active Albuterol Sulfate HFA 108 (90 Base) MCG/ACT INHALE 2 PUFFS BY MOUTH EVERY 4 HOURS NEEDED; Duration: 16 Active Gabapentin 600 MG 1 tablet Orally Once a day Active SIT (Cluster) variable - see record per schedule subcutaneous per schedule; Duration: 999 06/30/2024 Not-Taking EpiPen 2-Karson 0.3 MG/0.3ML as directed intramuscularly once; Duration: 1 days 10/21/2023 Active Advair HFA 115 MCG-21 MCG 2 PUFF(S) INHALED 2 TIMES A DAY; Duration: 30 DAYS *Please review and pick correct strength-formula tion from [employer] options. If intended option is not shown, discontinue and re-order from Quick Search* 10/21/2023 Not-Taking Fluticasone Propionate 50 MCG/ACT 1 spray(s) in each nostril once a day Active EPIPEN 2-KARSON 0.3 mg as directed intramuscularly once; Duration: 1 days Active Haritha Allergy 60 MG 3 tab(s) orally once a day Active FLUTICASONE NASAL 50 mcg/inh 1 spray(s) in each nostril once a day Active HARITHA ALLERGY 60 mg 3 tab(s) orally once a day Active Azelastine HCl 137 MCG/SPRAY 2 sprays in each nostril Nasally Twice a day; Duration: 90 days Active AEROCHAMBER MDI SPACER - MOUTHPIECE (ADULT) N/A As directed PO Per asthma action plan; Duration: 30 days Active Azelastine HCl 137 MCG/SPRAY 2 sprays in each nostril Nasally Twice a day; Duration: 90 days Active Trelegy Ellipta 200-62.5-25 MCG/ACT INHALE 1 PUFF BY MOUTH DAILY; Duration: 30 Active Famotidine 40 MG 1 tablet Orally 60 minutes prior to SCIT; Duration: 30 days 08/23/2024 Active Immunizations Vaccine Route Administration Date Status Comme nts NOC PedvaxHIB IM Intramuscular 12/02/2023 Administered NOC Pneumovax 23 IM Intramuscular 12/02/2023 Administered Social History Tobacco Use: Social History Observation Description Date Details (start date - stop date) Never Smoker NA - NA Sex Assigned At : Social History Observation Description Sex Assigned At Male Tobacco Control (Standard) Question Answer Notes Tobacco use: Nonsmoker AUDIT-C (Standard) Question Answer Notes Did you have a drink containing alcohol in the p ast year? No Points 0 Interpretation Negative Problems Problem Type SNOMED Code ICD Code Onset Dates Problem Status W/U Status Risk Notes Problem Vitamin D deficiency (41205380) Vitamin D deficiency, unspecified (E55.9) Active confirmed Problem Chronic allergic conjunctivitis (88290944) Other chronic allergic conjunctivitis (H10.45) Active confirmed Problem Allergic rhinitis caused by pollen (disorder) (14538230) Allergic rhinitis due to pollen (J30.1) Active confirmed Problem Allergic rhinitis (44162399) Other allergic rhinitis (J30.89) Active confirmed Problem Chronic rhinitis (28303499) Chronic rhinitis (J31.0) Active confirmed Problem Chronic sinusitis (28719305) Chronic sinusitis, unspecified (J32.9) Active confirmed Problem Food allergy (074095616) Allergy to other foods (Z91.018) Active confirmed Problem Allergic rhinitis caused by animal hair and dander (752226290310727) Allergic rhinitis due to animal (cat) (dog) hair and dander (J30.81) Active confirmed Vital Signs Oximetry 97 % 02/16/2025 Blood pressure diastolic 92 mm Hg 02/16/2025 Height 70 in 02/16/2025 Blood pressure systolic 152 mm Hg 02/16/2025 Weight 222.0 lbs 02/16/2025 BMI 31.85 kg/m2 02/16/2025 Encounters Encounter Location Date Provider Diagnosis [facility] [address] [place] [phone] 10/13/2024 Nathanael Jeremy Allergic rhinitis du e to pollen J30.1 ; Other allergic rhinitis J30.89 ; Allergic rhinitis due to animal (cat) (dog) hair and dander J30.81 and Other chronic allergic conjunctivitis H10.45 [facility] [address] [place] [phone] 10/06/2024 Nathanaelron Luna Allergic rhinitis du e to pollen J30.1 ; Other allergic rhinitis J30.89 ; Allergic rhinitis due to animal (cat) (dog) hair and dander J30.81 and Other chronic allergic conjunctivitis H10.45 [facility] [address] [place] [phone] 03/30/2025 Nathanael Luna Allergic rhinitis du e to pollen J30.1 ; Other allergic rhinitis J30.89 ; Allergic rhinitis due to animal (cat) (dog) hair and dander J30.81 and Other chronic allergic conjunctivitis H10.45 [facility] [address] [place] [phone] 03/16/2025 Nathanael Luna Allergic rhinitis du e to pollen J30.1 ; Other allergic rhinitis J30.89 ; Allergic rhinitis due to animal (cat) (dog) hair and dander J30.81 and Other chronic allergic conjunctivitis H10.45 [facility] [address] [place] [phone] 03/02/2025 Nathanael Luna Allergic rhinitis du e to pollen J30.1 ; Other allergic rhinitis J30.89 ; Allergic rhinitis due to animal (cat) (dog) hair and dander J30.81 and Other chronic allergic conjunctivitis H10.45 [facility] [address] [place] [phone] 02/02/2025 Nathanael Luna Allergic rhinitis du e to pollen J30.1 ; Other allergic rhinitis J30.89 ; Allergic rhinitis due to animal (cat) (dog) hair and dander J30.81 and Other chronic allergic conjunctivitis H10.45 [facility] [address] [place] [phone] 01/19/2025 Nathanael Jeremy Allergic rhinitis du e to pollen J30.1 ; Other allergic rhinitis J30.89 ; Allergic rhinitis due to animal (cat) (dog) hair and dander J30.81 and Other chronic allergic conjunctivitis H10.45 [facility] [address] [place] [phone] 01/12/2025 Nathanaelron Luna Allergic rhinitis du e to pollen J30.1 ; Other allergic rhinitis J30.89 ; Allergic rhinitis due to animal (cat) (dog) hair and dander J30.81 and Other chronic allergic conjunctivitis H10.45 [facility] [address] [place] [phone] 01/05/2025 Nathanael Luna Allergic rhinitis du e to pollen J30.1 ; Other allergic rhinitis J30.89 ; Allergic rhinitis due to animal (cat) (dog) hair and dander J30.81 and Other chronic allergic conjunctivitis H10.45 [facility] [address] [place] [phone] 12/15/2024 Nathanael Luna Allergic rhinitis du e to pollen J30.1 ; Other allergic rhinitis J30.89 ; Allergic rhinitis due to animal (cat) (dog) hair and dander J30.81 and Other chronic allergic conjunctivitis H10.45 [facility] [address] [place] [phone] 12/07/2024 Nathanael Luna Allergic rhinitis du e to pollen J30.1 ; Other allergic rhinitis J30.89 ; Allergic rhinitis due to animal (cat) (dog) hair and dander J30.81 and Other chronic allergic conjunctivitis H10.45 [facility] [address] [place] [phone] 11/24/2024 Nathanael Luna Allergic rhinitis du e to pollen J30.1 ; Other allergic rhinitis J30.89 ; Allergic rhinitis due to animal (cat) (dog) hair and dander J30.81 and Other chronic allergic conjunctivitis H10.45 [facility] [address] [place] [address] [employer] [address] [address] 10/27/2024 Nathanael Jeremy Allergic rhinitis du e to pollen J30.1 ; Other allergic rhinitis J30.89 ; Allergic rhinitis due to animal (cat) (dog) hair and dander J30.81 and Other chronic allergic conjunctivitis H10.[address] [address] 02/16/2025 Alma Fatima Allergic rhinitis du e to pollen J30.1 ; Allergic rhinitis due to animal (cat) (dog) hair and dander J30.81 ; Other allergic rhinitis J30.89 ; Other chronic allergic conjunctivitis H10.45 ; Cough, unspecified R05.9 ; Chronic sinusitis, unspecified J32.9 ; Vitamin D deficiency, unspecified E55.9 ; Otalgia, unspecified ear H92.09 ; Dermatitis due to ingested food L27.2 ; Allergy to other foods Z91.018 and Elevated blood-pressure reading, without diagnosis of hypertension R03.0 [facility] [address] [place] [address] [employer] [address] [phone] 09/22/2024 Nathanael Luna Allergic rhinitis du e to pollen J30.1 ; Allergic rhinitis due to animal (cat) (dog) hair and dander J30.81 ; Other allergic rhinitis J30.89 and Other chronic allergic conjunctivitis H10.[address] [address] 09/16/2024 Nathanael Luna Allergic rhinitis du e to pollen J30.1 ; Allergic rhinitis due to animal (cat) (dog) hair and dander J30.81 ; Other allergic rhinitis J30.89 and Other chronic allergic conjunctivitis H10.45 [facility] [address] [place] [phone] 09/08/2024 Nathanael Luna Allergic rhinitis du e to pollen J30.1 ; Allergic rhinitis due to animal (cat) (dog) hair and dander J30.81 ; Other allergic rhinitis J30.89 and Other chronic allergic conjunctivitis H10.45 [facility] [address] [place] [address], [place] [address] 08/18/2024 Nathanaelron Luna Allergic rhinitis du e to pollen J30.1 ; Allergic rhinitis due to animal (cat) (dog) hair and dander J30.81 ; Other allergic rhinitis J30.89 and Other chronic allergic conjunctivitis H10.45 [facility] [address] [place] [address] [employer] [address] [address] 08/11/2024 Nathanaelron Luna Allergic rhinitis du e to pollen J30.1 ; Allergic rhinitis due to animal (cat) (dog) hair and dander J30.81 ; Other allergic rhinitis J30.89 and Other chronic allergic conjunctivitis H10.45 [facility] [address] [place] [address] [employer] [address] [address] 08/04/2024 Nathanaelron Luna Allergic rhinitis du e to pollen J30.1 ; Allergic rhinitis due to animal (cat) (dog) hair and dander J30.81 ; Other allergic rhinitis J30.89 and Other chronic allergic conjunctivitis H10.45 [facility] [address] [place] [phone] 07/15/2024 Nathanaelron Luna Allergic rhinitis du e to pollen J30.1 ; Allergic rhinitis due to animal (cat) (dog) hair and dander J30.81 ; Other allergic rhinitis J30.89 and Other chronic allergic conjunctivitis H10.45 [facility] [address] [place] [phone] 07/28/2024 Nathanael Luna Allergic rhinitis du e to pollen J30.1 ; Allergic rhinitis due to animal (cat) (dog) hair and dander J30.81 ; Other allergic rhinitis J30.89 and Other chronic allergic conjunctivitis H10.45 [facility] [address] [place] [address] [place] [phone] 07/21/2024 Nathanaelron Luna Allergic rhinitis du e to pollen J30.1 ; Allergic rhinitis due to animal (cat) (dog) hair and dander J30.81 ; Other allergic rhinitis J30.89 and Other chronic allergic conjunctivitis H10.45 [facility] [address] [place] [address] [employer] [address] [place] [phone] 10/21/2024 Nathanael Luna Allergic rhinitis du e to pollen J30.1 ; Other allergic rhinitis J30.89 ; Allergic rhinitis due to animal (cat) (dog) hair and dander J30.81 and Other chronic allergic conjunctivitis H10.45 [facility] [address] [place] [phone] 06/30/2024 Alma Fatima Allergic rhinitis du e to pollen J30.1 ; Allergic rhinitis due to animal (cat) (dog) hair and dander J30.81 ; Other allergic rhinitis J30.89 ; Other chronic allergic conjunctivitis H10.45 ; Cough, unspecified R05.9 ; Chronic sinusitis, unspecified J32.9 ; Vitamin D deficiency, unspecified E55.9 ; Otalgia, unspecified ear H92.09 ; Dermatitis due to ingested food L27.2 ; Allergy to other foods Z91.018 and Elevated blood-pressure reading, without diagnosis of hypertension R03.0 [facility] [address] [place] [phone] 09/29/2024 Nathanael Luna Allergic rhinitis du e to pollen J30.1 ; Allergic rhinitis due to animal (cat) (dog) hair and dander J30.81 ; Other allergic rhinitis J30.89 and Other chronic allergic conjunctivitis H10.45 [facility] [address] [place] [phone] 07/08/2024 Nathanael Luna Allergic rhinitis du e to pollen J30.1 ; Allergic rhinitis due to animal (cat) (dog) hair and dander J30.81 ; Other allergic rhinitis J30.89 and Other chronic allergic conjunctivitis H10.[address] [address] 04/05/2025 Alma Fatima [address] [address] 08/31/2024 Alma Fatima Allergic rhinitis du e to pollen J30.[address] [address] 06/16/2024 Alma Fatima [address] [address] 02/03/2025 Alam Fatima Cough, unspecified R05.9 [facility] [address] [place] [phone] 01/25/2025 [facility] [address] [place] [phone] 12/31/2024 Alma Fatima Cough, unspecified R05.9 [facility] [address] [place] [phone] 12/31/2024 Alma Fatima Cough, unspecified R05.9 [facility] [address] [place] [phone] 12/01/2024 Alma Fatima [facility] [address] [place] [phone] 11/23/2024 Alma Fatima [facility] [address] [place] [phone] 11/03/2024 Alma Fatima [facility] [address] [place] [phone] 09/15/2024 Alma Fatima [facility] [address] [place] [phone] 08/31/2024 Alma Fatima [facility] [address] [place] [phone] 08/26/2024 Alma Fatima [facility] [address] [place] [phone] 08/18/2024 Alma Fatima [facility] [address] [place] [phone] 08/18/2024 Alma Fatima [facility] [place] [address] [place] [phone] 07/07/2024 Alma Fatima [facility] [address] [place] [phone] 07/07/2024 Alma Fatima [facility] [address] [place] [phone] 05/22/2024 Alma Fatima Assessments Encounter Date Diagnosis (ICD Code) Assessment Notes Treatment Notes Treatment Clinical Notes Section Notes 06/30/2024 Allergic rhinitis due to pollen (ICD-10 - J30.1) Debra clearly suffers from atopic disease based upon our prior skin testing. Accordingly, we have encouraged his medication regimen, discussed nasal washes and allergy-specific avoidance measures. We also discussed adjunctive therapies including subcutaneous, specific allergen immunotherapy as relates to the treatment and prevention of atopic disease. After discussing subcutaneous, specific allergen immunotherapy as relates to the treatment and prevention of atopic disease and after considering the risks, benefits and alternatives to this treatment, we started today. - Debra tolerated SCIT dosing today without large local or systemic reactions. He is aware to carry AIE to all SCIT visits and for two hours after. - Continue medication regimen as above. Continue to premedicate with Haritha. - Follow-up in one week for SCIT dosing and in 7 weeks for further evaluation and management 06/30/2024 Allergic rhinitis due to animal (cat) (dog) hair and dander (ICD-10 - J30.81) Follow allergen avoidance, meds and continue SCIT as an adjunctive treatment to current regimen 07/08/2024 Allergic rhinitis due to pollen (ICD-10 - J30.1) 07/21/2024 Allergic rhinitis due to pollen (ICD-10 - J30.1) 07/28/2024 Allergic rhinitis due to pollen (ICD-10 - J30.1) 08/04/2024 Allergic rhinitis due to pollen (ICD-10 - J30.1) 08/11/2024 Allergic rhinitis due to pollen (ICD-10 - J30.1) 08/18/2024 Allergic rhinitis due to pollen (ICD-10 - J30.1) 08/31/2024 Allergic rhinitis due to pollen (ICD-10 - J30.1) 09/08/2024 Allergic rhinitis due to pollen (ICD-10 - J30.1) 09/16/2024 Allergic rhinitis due to pollen (ICD-10 - J30.1) 09/22/2024 Allergic rhinitis due to pollen (ICD-10 - J30.1) 09/29/2024 Allergic rhinitis due to pollen (ICD-10 - J30.1) 10/06/2024 Allergic rhinitis due to pollen (ICD-10 - J30.1) 10/06/2024 Other allergic rhinitis (ICD-10 - J30.89) 10/13/2024 Allergic rhinitis due to pollen (ICD-10 - J30.1) 10/13/2024 Other allergic rhinitis (ICD-10 - J30.89) 10/21/2024 Allergic rhinitis due to pollen (ICD-10 - J30.1) 10/21/2024 Other allergic rhinitis (ICD-10 - J30.89) 10/27/2024 Allergic rhinitis due to pollen (ICD-10 - J30.1) 10/27/2024 Other allergic rhinitis (ICD-10 - J30.89) 12/07/2024 Allergic rhinitis due to pollen (ICD-10 - J30.1) 12/07/2024 Other allergic rhinitis (ICD-10 - J30.89) 12/15/2024 Allergic rhinitis due to pollen (ICD-10 - J30.1) 12/15/2024 Other allergic rhinitis (ICD-10 - J30.89) 02/03/2025 Cough, unspecified (ICD-10 - R05.9) 02/16/2025 Allergic rhinitis due to pollen (ICD-10 - J30.1) Debra clearly suffers from atopic disease based upon our prior skin testing. Accordingly, we have encouraged his medication regimen, discussed nasal washes and allergy-specific avoidance measures. Debra continues SCIT, recently reached MM. - Debra tolerated SCIT dosing today without large local or systemic reactions. We reduced dosing due to his reports of large locals. He is aware to carry AIE to all SCIT visits and for two hours after. - Continue medication regimen as above. - Discussed increasing SCIT frequency in peak season. - Follow-up as scheduled for SCIT and in 3-4 months for further evaluation and management 02/16/2025 Allergic rhinitis due to animal (cat) (dog) hair and dander (ICD-10 - J30.81) Follow allergen avoidance, meds and continue SCIT as an adjunctive treatment to current regimen 03/16/2025 Allergic rhinitis due to pollen (ICD-10 - J30.1) 03/16/2025 Other allergic rhinitis (ICD-10 - J30.89) 03/30/2025 Allergic rhinitis due to pollen (ICD-10 - J30.1) 07/15/2024 Allergic rhinitis due to pollen (ICD-10 - J30.1) 03/30/2025 Other allergic rhinitis (ICD-10 - J30.89) 03/02/2025 Allergic rhinitis due to pollen (ICD-10 - J30.1) 03/02/2025 Other allergic rhinitis (ICD-10 - J30.89) 02/02/2025 Allergic rhinitis due to pollen (ICD-10 - J30.1) 02/02/2025 Other allergic rhinitis (ICD-10 - J30.89) 01/19/2025 Allergic rhinitis due to pollen (ICD-10 - J30.1) 01/19/2025 Other allergic rhinitis (ICD-10 - J30.89) 01/12/2025 Allergic rhinitis due to pollen (ICD-10 - J30.1) 01/12/2025 Other allergic rhinitis (ICD-10 - J30.89) 01/05/2025 Other allergic rhinitis (ICD-10 - J30.89) 12/31/2024 Cough, unspecified (ICD-10 - R05.9) 12/31/2024 Cough, unspecified (ICD-10 - R05.9) 01/05/2025 Allergic rhinitis due to pollen (ICD-10 - J30.1) 11/24/2024 Allergic rhinitis due to pollen (ICD-10 - J30.1) 11/24/2024 Other allergic rhinitis (ICD-10 - J30.89) 11/24/2024 Allergic rhinitis due to animal (cat) (dog) hair and dander (ICD-10 - J30.81) 01/05/2025 Allergic rhinitis due to animal (cat) (dog) hair and dander (ICD-10 - J30.81) 01/12/2025 Allergic rhinitis due to animal (cat) (dog) hair and dander (ICD-10 - J30.81) 01/19/2025 Allergic rhinitis due to animal (cat) (dog) hair and dander (ICD-10 - J30.81) 02/02/2025 Allergic rhinitis due to animal (cat) (dog) hair and dander (ICD-10 - J30.81) 03/02/2025 Allergic rhinitis due to animal (cat) (dog) hair and dander (ICD-10 - J30.81) 07/15/2024 Allergic rhinitis due to animal (cat) (dog) hair and dander (ICD-10 - J30.81) 03/30/2025 Allergic rhinitis due to animal (cat) (dog) hair and dander (ICD-10 - J30.81) 03/16/2025 Allergic rhinitis due to animal (cat) (dog) hair and dander (ICD-10 - J30.81) 02/16/2025 Other allergic rhinitis (ICD-10 - J30.89) Follow allergen avoidance, meds and continue SCIT as an adjunctive treatment to current regimen 12/15/2024 Allergic rhinitis due to animal (cat) (dog) hair and dander (ICD-10 - J30.81) 12/07/2024 Allergic rhinitis due to animal (cat) (dog) hair and dander (ICD-10 - J30.81) 10/27/2024 Allergic rhinitis due to animal (cat) (dog) hair and dander (ICD-10 - J30.81) 10/21/2024 Allergic rhinitis due to animal (cat) (dog) hair and dander (ICD-10 - J30.81) 10/13/2024 Allergic rhinitis due to animal (cat) (dog) hair and dander (ICD-10 - J30.81) 10/06/2024 Allergic rhinitis due to animal (cat) (dog) hair and dander (ICD-10 - J30.81) 09/29/2024 Allergic rhinitis due to animal (cat) (dog) hair and dander (ICD-10 - J30.81) 09/22/2024 Allergic rhinitis due to animal (cat) (dog) hair and dander (ICD-10 - J30.81) 09/16/2024 Allergic rhinitis due to animal (cat) (dog) hair and dander (ICD-10 - J30.81) 09/08/2024 Allergic rhinitis due to animal (cat) (dog) hair and dander (ICD-10 - J30.81) 08/18/2024 Allergic rhinitis due to animal (cat) (dog) hair and dander (ICD-10 - J30.81) 08/11/2024 Allergic rhinitis due to animal (cat) (dog) hair and dander (ICD-10 - J30.81) 08/04/2024 Allergic rhinitis due to animal (cat) (dog) hair and dander (ICD-10 - J30.81) 07/28/2024 Allergic rhinitis due to animal (cat) (dog) hair and dander (ICD-10 - J30.81) 07/21/2024 Allergic rhinitis due to animal (cat) (dog) hair and dander (ICD-10 - J30.81) 07/08/2024 Allergic rhinitis due to animal (cat) (dog) hair and dander (ICD-10 - J30.81) 06/30/2024 Other allergic rhinitis (ICD-10 - J30.89) Follow allergen avoidance, meds and continue SCIT as an adjunctive treatment to current regimen 06/30/2024 Other chronic allergic conjunctivitis (ICD-10 - H10.45) Given ocular signs and symptoms I encouraged allergy avoidance measures and meds as above. If symptoms persist, consider adding additional medications including intraocular antihistamine/mast cell stabilizer, PRN and continue SCIT as an adjunctive measure 07/08/2024 Other allergic rhinitis (ICD-10 - J30.89) 07/21/2024 Other allergic rhinitis (ICD-10 - J30.89) 07/28/2024 Other allergic rhinitis (ICD-10 - J30.89) 08/04/2024 Other allergic rhinitis (ICD-10 - J30.89) 08/11/2024 Other allergic rhinitis (ICD-10 - J30.89) 08/18/2024 Other allergic rhinitis (ICD-10 - J30.89) 09/08/2024 Other allergic rhinitis (ICD-10 - J30.89) 09/16/2024 Other allergic rhinitis (ICD-10 - J30.89) 09/22/2024 Other allergic rhinitis (ICD-10 - J30.89) 10/06/2024 Other chronic allergic conjunctivitis (ICD-10 - H10.45) 10/13/2024 Other chronic allergic conjunctivitis (ICD-10 - H10.45) 10/21/2024 Other chronic allergic conjunctivitis (ICD-10 - H10.45) 10/27/2024 Other chronic allergic conjunctivitis (ICD-10 - H10.45) 12/07/2024 Other chronic allergic conjunctivitis (ICD-10 - H10.45) 12/15/2024 Other chronic allergic conjunctivitis (ICD-10 - H10.45) 02/16/2025 Other chronic allergic conjunctivitis (ICD-10 - H10.45) Given ocular signs and symptoms I encouraged allergy avoidance measures and meds as above. If symptoms persist, consider adding additional medications including intraocular antihistamine/mast cell stabilizer, PRN and continue SCIT as an adjunctive measure 09/29/2024 Other allergic rhinitis (ICD-10 - J30.89) 03/16/2025 Other chronic allergic conjunctivitis (ICD-10 - H10.45) 03/30/2025 Other chronic allergic conjunctivitis (ICD-10 - H10.45) 03/02/2025 Other chronic allergic conjunctivitis (ICD-10 - H10.45) 07/15/2024 Other allergic rhinitis (ICD-10 - J30.89) 02/02/2025 Other chronic allergic conjunctivitis (ICD-10 - H10.45) 01/12/2025 Other chronic allergic conjunctivitis (ICD-10 - H10.45) 01/19/2025 Other chronic allergic conjunctivitis (ICD-10 - H10.45) 01/05/2025 Other chronic allergic conjunctivitis (ICD-10 - H10.45) 11/24/2024 Other chronic allergic conjunctivitis (ICD-10 - H10.45) 07/15/2024 Other chronic allergic conjunctivitis (ICD-10 - H10.45) 02/16/2025 Cough, unspecified (ICD-10 - R05.9) Debra presented at his initial visit reporting cough and shortness of breath, typically occurring multiple times per week. In May 2022 he was diagnosed with walking pneumonia, and he feels symptoms have been ongoing since. At that time he was prescribed a rescue inhaler, which he uses 1-2 times/week on average. He recalls being prescribed a diskus device in the past. No history of hospitalizations due to lower airway symptoms. - Spirometry obtained at a prior visit that showed normal FEV1, FVC and FEV1%. Comparable findings on repeat spirometry today. - Continue trial of Trelegy due to recent symptoms. Proper demonstration provided last visit. He is aware to rinse his mouth. - Continue TOSHIA as-needed per AAP. - Follow-up as above 09/29/2024 Other chronic allergic conjunctivitis (ICD-10 - H10.45) 09/16/2024 Other chronic allergic conjunctivitis (ICD-10 - H10.45) 09/22/2024 Other chronic allergic conjunctivitis (ICD-10 - H10.45) 09/08/2024 Other chronic allergic conjunctivitis (ICD-10 - H10.45) 08/18/2024 Other chronic allergic conjunctivitis (ICD-10 - H10.45) 07/28/2024 Other chronic allergic conjunctivitis (ICD-10 - H10.45) 08/04/2024 Other chronic allergic conjunctivitis (ICD-10 - H10.45) 08/11/2024 Other chronic allergic conjunctivitis (ICD-10 - H10.45) 07/21/2024 Other chronic allergic conjunctivitis (ICD-10 - H10.45) 06/30/2024 Cough, unspecified (ICD-10 - R05.9) Debra presented at his initial visit reporting cough and shortness of breath, typically occurring multiple times per week. In May 2022 he was diagnosed with walking pneumonia, and he feels symptoms have been ongoing since. At that time he was prescribed a rescue inhaler, which he uses 1-2 times/week on average. He recalls being prescribed a diskus device in the past. No history of hospitalizations due to lower airway symptoms. - Debra returned recently with increased lower airway symptoms since he went out of town recently. Reports increased shortness of breath and perceived wheezing. He has not required antibiotics or steroids. - Lungs clear to auscultation on PE. Considerations include RAD vs post infectious cough vs other. - Spirometry obtained at a prior visit that showed normal FEV1, FVC and FEV1%. Comparable findings on repeat spirometry. - Continue trial of Trelegy due to recent symptoms. Proper demonstration provided last visit. He is aware to rinse his mouth. - Continue TOSHIA as-needed, reinforced using this PRN today. - Follow-up as above 07/08/2024 Other chronic allergic conjunctivitis (ICD-10 - H10.45) 06/30/2024 Chronic sinusitis, unspecified (ICD-10 - J32.9) Debra endorses frequent sinus infections. He has required 3 courses of oral antibiotics in the last 12 months due to sinusitis, meeting JMF criteria for modified PIDD work-up. - Work-up shows inadequate protection to h. influenzae and s. pnuemo. Also with low vitamin D, see plan below. Debra has since received Pneumovax and HiB, due for repeat titers. Instructed Debra to have labs drawn 02/16/2025 Chronic sinusitis, unspecified (ICD-10 - J32.9) Debra endorses frequent sinus infections. He has required 3 courses of oral antibiotics in the last 12 months due to sinusitis, meeting JMF criteria for modified PIDD work-up. - Work-up shows inadequate protection to h. influenzae and s. pnuemo. Also with low vitamin D, see plan below. Debra has since received Pneumovax and HiB, due for repeat titers. Instructed Debra to have labs drawn 06/30/2024 Vitamin D deficiency, unspecified (ICD-10 - E55.9) Debra is due for recheck of vitamin D, Debra is aware to have labs drawn 02/16/2025 Vitamin D deficiency, unspecified (ICD-10 - E55.9) Debra is due for recheck of vitamin D, Debra is aware to have labs drawn 02/16/2025 Otalgia, unspecified ear (ICD-10 - H92.09) Debra reports significant pressure in his ears when he is swimming. He is unable to dive deeply in pools. He denies pain at other times. - PE shows clear TM, no fluid, erythema or bulging. - Consider consult with ENT 06/30/2024 Otalgia, unspecified ear (ICD-10 - H92.09) Debra reports significant pressure in his ears when he is swimming. He is unable to dive deeply in pools. He denies pain at other times. - PE shows clear TM, no fluid, erythema or bulging. - Consider consult with ENT 02/16/2025 Dermatitis due to ingested food (ICD-10 - L27.2) Debra reports an episode of throat discomfort and generalized pruritus immediately after eating popcorn shrimp. Admits this was several years ago. He has avoided all shellfish since. He previously carried an AIE, however unsure if he still has it. - SPT completed today to shellfish panel that were unequivocally positive. - Continue avoidance of all shellfish. Debra is not interested in ImmunoCaps at this time. - Debra is to carry AIE at all times 06/30/2024 Dermatitis due to ingested food (ICD-10 - L27.2) Debra reports an episode of throat discomfort and generalized pruritus immediately after eating popcorn shrimp. Admits this was several years ago. He has avoided all shellfish since. He previously carried an AIE, however unsure if he still has it. - SPT completed today to shellfish panel that were unequivocally positive. - Continue avoidance of all shellfish. Debra is not interested in ImmunoCaps at this time. - Debra is to carry AIE at all times 06/30/2024 Allergy to other foods (ICD-10 - Z91.018) See plan above 02/16/2025 Allergy to other foods (ICD-10 - Z91.018) See plan above 02/16/2025 Elevated blood-pressure reading, without diagnosis of hypertension (ICD-10 - R03.0) BP elevated today without symptoms of urgency or emergency. Continue serial checks and follow-up with PCP 06/30/2024 Elevated blood-pressure reading, without diagnosis of hypertension (ICD-10 - R03.0) BP elevated today without symptoms of urgency or emergency. Continue serial checks and follow-up with PCP 01/25/2025 Other 08/04/2024 Other 09/22/2024 Other 09/29/2024 Other 08/18/2024 Other 07/15/2024 Other 07/14/2024 Other 08/25/2024 Other 08/11/2024 Other 09/08/2024 Other 07/08/2024 Other 06/30/2024 Other 07/21/2024 Other 02/16/2025 Other 07/28/2024 Other 09/15/2024 Other 09/16/2024 Other Plan Of Treatment Pending Test Test Name Order Date -Vitamin D, 25-Hydroxy 12/02/2023 -Haemophilus influenzae B IgG 12/02/2023 -Pneumococcal Ab (23 Serotype) Next Appt Details Provider Name:Alma whitman, 08/03/2025 10:00:00 AM, [address] [facility], [address], [place], [address], Insurance Providers Payer Name Payer Address Payer Phone Subscriber Number Group Number Insured Name Patient Relationship to Insured Coverage Start Date Coverage End Date [address] Aravind garcia, APRIL [address] [id number] Nino Sloan Self - patient is the insured 3 Medical (General) History Medical History History ICD Code 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
--- OUTSIDE RECORDS SUMMARY | 2025-05-05 13:51 | XMS_ITS | Encounter Summary ---
Author Organization [facility] Address [address] [place] [address] Care Team Providers Care Radio Electronics Officer Name Role Phone Victor Hugo Esteves NP Unavailable [phone] Chris England MD Unavailable Alejandro Flores MD Primary Care Provider [phone] Encounter Details Date Type Department Care Team (Late st Contact Info) Description 05/03/2025 Results Follow-Up [facility] at [address] [address] Carlotta Mcintosh NP [address] [place] [address] [address] [place] [address] XR Chest PA Lateral 2 Views Social History Tobacco Use Types Packs/Day Years Used Date Smoking Tobacco: Never Passive Smoke Exposure: Never Smokeless Tobacco: Never Alcohol Use Standard Drinks/Week Comments No 0 (1 standard drink = 0.6 oz pur e alcohol) PHQ-2 Answer Date Recorded PHQ-2 Score 2 02/19/2019 Sex and Gender Information Value Date Recorded Sex Assigned at Not on file Legal Sex Male 9:21 PM [employer] Gender Identity Male 04/04/2020 4:09 PM [employer] Sexual Orientation Straight 04/04/2020 4 :09 PM [employer] documented as of this encounter Plan of Treatment Not on file documented as of this encounter Goals Goal Patient Goal Type Associated Problems Recent Progress Patient-Stated? Author Increase physical activity Exercise No Connie Larsen, RN Note: He was encouraged to continue to do as much as possible with his right arm. documented as of this encounter Visit Diagnoses Not on filedocumented in this encounter Additional Health Concerns Infection Onset Date Last Indicated Resolved Time COVID: Suspected 05/03/2025 05/03/2025 05/03/2025 9:02 AM [employer] documented as of this encounter Care Teams Radio Electronics Officer Relationship Specialty Start Date End Date Alejandro Flores MD [address] [place] [address] PCP - General Family Medicine 12/03/24 [place] [id number] [address] [facility] [address] [place] [address] Nurse Practitioner Pain Management 03/25/24 [place] [id number] [address] [facility] [address] [facility] [facility] [place] [address] Consulting Physician Pain Management 07/22/24 documented as of this encounter
--- NOTE | 2025-05-05 13:58 | PM.IMHP2 ---
H&P: HPI History of Present Illness Date/Time: 05/05/25 13:58 Chief Complaint: Intentional Overdose Narrative: 45 y/o M with PMH of chronic regional pain syndrome, Wartenberg Syndrome, hypogonadism, and arthritis presents here with intentional overdose. The patient presents here from home on 05/05 for further evaluation after an intentional overdose. Initially reported to EMS that the patient took 6 different medications (10-15 pills per bottle) around 10:15 a.m. today (05/05). EMS contacted [place] [facility] Control who discussed that because for of the medications for opiates and 1 was atropine that the patient may require multiple doses of Narcan/large quantity of Narcan. EMS administered 2 mg of Narcan IV at 10:50 a.m. Patient is prescribed multiple opiates due to a history of complex regional pain syndrome in his right wrist that radiates into his right shoulder. States he attempted to take his life today primarily due to the ongoing pain and worsening depression. He also reports he has been diagnosed with pneumonia recently and prescribed azithromycin and doxycycline. He reports this has been a recurrent issue for him which also led to him being depressed and he believes that because he has had multiple times that it will only continue to get worse. Patient did leave a suicide note for his family. He has no history of suicide attempt. Has been previously treated previously at an inpatient psychiatric facility 10 years ago when he was 1st diagnosed with CRPS. States he was the 1 who called EMS because he did not want his family to find him as his kids would be getting home early from school. Denies any recreational drug use or alcohol use today. He currently follows with a cloth painter at [facility]. Additionally was seeing a therapist, however he was fired mid March after he looked at health information while in office. He denies access to firearms. He reports he has had previous suicidal ideation when he 1st got diagnosis CRPS. However he has not been contemplating this for a long time. Believes this episode was more so brought on by a the chronic pain and the recent diagnosis of pneumonia. Initial VS at presentation: 98.2? F, HR 118, R 21, 131/85, and 93% on RA. Now on 2L nasal cannula. ED workup showed: No leukocytosis, no anemia, normal coags, no significant electrolyte derangements, creatinine 0.96 and GFR >60, glucose 151, and UA unremarkable. Salicylates and acetaminophen negative. UDS positive for opiates. Ethanol negative. Viral PCR negative. EKG showed sinus tachycardia, rate 110, possible left atrial enlargement, LVH and ST-T changes, borderline T-wave abnormality in anterolateral/inferior leads. QTC 316/QTC 428. Review of Systems Review of Systems: All systems reviewed & are unremarkable except as noted in HPI and below PMFSH Past Medical History Medical History CRPS (complex regional pain syndrome type I) Low testosterone Hypogonadism Spinal cord stimulator status Plantar fasciitis Wartenberg syndrome Family History Family History (Updated 05/05/25 @ 15:45 by Caroline Carbajal RN) Father Diabetes mellitus Morbid obesity Acute myocardial infarction CHF (congestive heart failure) A-fib Chronic kidney disease Parkinson disease AD (Alzheimer's disease) Mother Diabetes mellitus Sibling No problems noted. Sibling multiple system failure. Social History Social History Smoking status: Never smoker Second hand tobacco smoke exposure: No Alcohol intake: never Substance use: never Substance use type: does not use Lack of Transportation: No Lack of Food: Never True Current Housing: I Have Housing Concerned About Future Housing: No Difficulty Paying Gas/Electric Bills: No Difficulty Paying for Meds: No Currently Unemployed: No Education: High School Diploma/GED Difficulty w/ Childcare or Family Care: No Living arrangements: with family Additional occupation/education comments: disabled-crps Gender identity (if verbalized by the patient): Male Spiritual care concerns: No Meds Home Medications and Allergies Home Medications ?Medication ?Instructions ?Recorded ?Confirmed ?Type buprenorphine HCl 750 mcg buccal 750 mcg buccal Q12H 06/23/19 05/05/25 History film ([place]) fluticasone propionate 50 1 spray intranasal DAILY 10/04/21 05/05/25 History mcg/actuation nasal spray,suspension levorphanol tartrate 2 mg tablet 2 mg PO .Q6HR PRN pain 10/04/21 05/05/25 History albuterol sulfate 90 mcg/actuation 2 inh inhalation Q6-8H PRN 06/05/23 05/05/25 Rx aerosol inhaler shortness of breath or wheezing #6.7 grams gabapentin 600 mg tablet 600 mg PO BID #90 tabs 12/30/24 05/05/25 Rx testosterone cypionate 200 mg/mL 300 mg (1.5 mL) IM .every 2weeks 12/30/24 05/05/25 Rx intramuscular oil #10 mL (Depo-Testosterone) rimegepant 75 mg disintegrating 75 mg PO Q48H PRN migraine 05/03/25 05/05/25 Rx tablet (Nurtec ODT) headache #8 tabs cetirizine 10 mg tablet (24Hour 5 mg PO DAILY 05/05/25 05/05/25 History Allergy) clonazepam 0.5 mg tablet 0.5 mg PO DAILY 05/05/25 05/05/25 History duloxetine 60 mg capsule,delayed 60 mg PO DAILY 05/05/25 05/05/25 History release (Cymbalta) Allergies Allergy/AdvReac Type Severity Reaction Status Date / Time amoxicillin AdvReac Intermediate Rash Verified 05/05/25 11:32 sumatriptan AdvReac Intermediate Depression Verified 05/05/25 11:32 shell fish Allergy Severe Anaphylactic Uncoded 05/05/25 11:32 Shock Vital Signs Vital Signs - 24 hr 05/05/25 11:04 05/05/25 11:20 05/05/25 11:20 Temperature 98.2 F Pulse Rate 118 H Respiratory Rate 21 H 20 Blood Pressure 131/85 Pulse Oximetry 93 94 Oxygen Delivery Room Air Room Air Oxygen Flow Rate 05/05/25 11:32 05/05/25 11:32 05/05/25 11:45 Temperature Pulse Rate 112 H 111 H 111 H Respiratory Rate 18 21 H Blood Pressure 124/82 126/78 Pulse Oximetry 90 89 L Oxygen Delivery Oxygen Flow Rate 05/05/25 12:00 05/05/25 12:16 05/05/25 12:18 Temperature Pulse Rate 115 H 123 H Respiratory Rate 20 22 H Blood Pressure 118/84 122/73 Pulse Oximetry 93 96 94 Oxygen Delivery Nasal Cannula Oxygen Flow Rate 2 05/05/25 12:30 05/05/25 12:47 05/05/25 13:02 Temperature Pulse Rate 119 H 104 H 115 H Respiratory Rate 20 23 H 26 H Blood Pressure 132/81 95/76 L 112/62 Pulse Oximetry 99 99 98 Oxygen Delivery Oxygen Flow Rate 05/05/25 13:18 12/17/25 13:32 Temperature Pulse Rate 115 H 107 H Respiratory Rate 24 H 22 H Blood Pressure 107/71 107/65 Pulse Oximetry 92 93 Oxygen Delivery Oxygen Flow Rate Exam Narrative: Initial physical assessment at 6:30 p.m. patient too somnolent to proceed with interview. Given 1 mg of Narcan IV. Reassessed at 8:00 p.m. patient now alert and no longer requiring oxygen. Const: General: comfortable and no acute distress Other: , male, nontoxic appearance HENMT: Face/Nose/Sinus: Normal nares present Mouth: Yes moist mucous membranes Eyes: General: appearance normal, both eyes and all related structures Sclera: sclerae normal EOM: EOMs intact bilaterally Resp: Effort & Inspection: normal respiratory effort Auscultation: clear to auscultation bilaterally Cardio: Rate: regular rate Rhythm: regular rhythm Other: S1-S2 present without murmur, rub, ectopy GI: Other: Abdomen soft, nondistended, nontender. Normoactive bowel sounds in all quadrants. Skin: General skin exam: normal color and no rashes or lesions noted Wounds: no wounds Neuro: Speech: normal speech Motor exam (neuro): 5/5 motor strength present throughout Sensory Exam: normal sensation Other: A&O x4 Extrem: General: normal to inspection Psych: Mental Status: mental status grossly normal Other: Had suicidal ideation with attempt due to CRPS and current health. Currently in good spirits. Normal affect. No current SI or HI. Results Labs Labs: Short CBC 05/05/25 Range/Units 11:34 WBC 7.3 (4.5-10.0) K/mm3 Hgb 15.7 (14.0-18.0) g/dL Hct 45.5 (42.0-52.0) % Plt Count 243 (150-375) k/mm3 BMP 05/05/25 11:34 Sodium 138 Potassium 3.4 Chloride 104 Carbon Dioxide 24 BUN 15 Creatinine 0.96 Glucose 151 H Calcium 9.0 Liver Function 05/05/25 Range/Units 11:34 Total Bilirubin 0.8 (0.2-1.3) mg/dL AST 24 (17-59) U/L ALT 28 (6-50) U/L Alkaline Phosphatase 71 (38-126) U/L Albumin 4.2 (3.5-5.1) g/dL Urine 05/05/25 Range/Units 12:05 Urine Color Yellow (Yellow) Urine Appearance Clear (Clear) Urine pH 6.0 (5.0-9.0) Ur Specific [place] 1.011 (1.001-1.035) Urine Protein Negative (Negative) mg/dL Urine Glucose (UA) Negative (Negative) mg/dL Quality VTE Prophylaxis VTE prophylaxis: mechanical ordered Assessment and Plan Assessment and plan (1) Intentional overdose: Qualifiers: Encounter type: initial encounter Qualified Code(s): T50.902A - Poisoning by unspecified drugs, medicaments and biological substances, intentional self-harm, initial encounter Code(s): T50.902A - Poisoning by unspecified drugs, medicaments and biological substances, intentional self-harm, initial encounter Status: Acute Assessment and Plan: Patient had an intentional overdose this morning at 10:15 a.m. multiple pills were opiates for which he received 2 mg IV of Narcan per EMS at 10:50 a.m.. Received a 2nd dose of 2 mg of Narcan at [facility] at 12:00 p.m. Patient took the following (10-15 pills per bottle unless specifically listed): hydromorphone 2mg opana/oxymorphone 10mg 10mg, 15-30 pills diphenoxylate/atropine 2.5mg levorphanol 2mg trazodone 100mg, 1 pill zofran 8mg, 2-4 pills Cited that the pain in his right wrist that radiates into his right shoulder (previously diagnosed with CRPS) is the reason for the overdose and it has been worsening his depression. Additionally he sites recently being diagnosed with pneumonia which has been a recurrence, states that he believes because he has had pneumonia multiple times that when he gets in the future it will be worse each time which also increases depression. He was following with a local therapist/psychiatrist, however he was fired from their services mid March due to an incident in office where he was able to access his own health information/other clients. He has no previous history of suicide attempt. Has previously been treated at a psychiatric facility inpatient 10 years ago for suicidal ideation when he was 1st diagnosis CRPS. ED RN contacted poison Control at 12:30 p.m., advised to watch for CERTIFIED CAREGIVER/respiratory depression. the oxymorphone, hydrocodone, and levorphanol all have a peak of 1hr max. was advised to watch pt until he became his normal/stable self. . - monitor neurologic status Q1H and for respiratory depression, on continuous pulse ox and admitted to the ICU under IMU status - Narcan 2 mg IV x1 p.r.n. for sedation/respiratory depression >> patient evaluated at 6:30 p.m. and very somnolent, very mild respiratory depression noted. Patient subsequently given 1 mg of Narcan IV and now able to sustain wakefulness and no longer requiring nasal cannula. - will need psychiatric evaluation once he is clinically stable - suicide precautions - given patient took 2-4 pills of 8 mg Zofran, will recheck EKG to re-evaluate QT interval at 4:00 p.m. - VS in the ED reviewed, patient did have mild hypoxia with an O2 sat of 89% on room air. Subsequently placed on 2 L nasal cannula. Continue to maintain O2 sat greater than 92%. - IV fluids: 2L boluls -> 100 mL/hr x1L - initially placed on a full liquid diet for CC reasons as he was somnolent, however this has resolved with the 3rd dose of Narcan and patient was transitioned to a regular diet (2) CRPS (complex regional pain syndrome type I): Qualifiers: Complex regional pain syndrome affected site: upper extremity Laterality: right Qualified Code(s): G90.511 - Complex regional pain syndrome I of right upper limb Code(s): G90.50 - Complex regional pain syndrome I, unspecified Status: Acute Assessment and Plan: Patient has history of complex regional pain syndrome to his right wrist that radiates into his right shoulder. Indicated that the constant pain was a large factor and his intentional overdose today. Prescribed multiple opiates outpatient. Took these medications as an intentional overdose. - home medications held, patient requesting gabapentin be resumed as soon as appropriate as well as his Cymbalta Plan Diet: full liquid -> regular Precautions: Suicide DVT Prophylaxis: IV fluids: 2L -> 100 mL/hr x1L Lines/Tubes: pIV Code Status: full code Prior Studies I have reviewed the following patient records and this information was taken into consideration when formulating the assessment and plan.: previous labs, previous ER visits, previous hospitalizations and previous clinic visits Time Spent with Patient Time with patient: less than 45 minutes Hospitalist MIPS Advance Care Plan I have confirmed that the patient's Advanced Care Plan is present, code status is documented, or surrogate decision maker is listed in patient medical record.: Yes Medication Reconciliation I have utilized all available resources to obtain, update and review the patients current medications (includes all prescriptions, OTC, herbals, cannabis, and nutritional supplements).: Yes
--- NOTE | 2025-05-05 14:18 | WPCEDHO ---
ED Hand Off Checklist All vitals saved: yes IV Site documented: yes All med administrations documented: yes Triage Note Triage Note pt to ED from home via 05/05/25 11:04 [facility] for c/o intentional overdose. EMS reports pt took 5 different pills around 1015 today, took 10-15 pills from each bottle. EMS called [place] poison control and said 4 were opioids and 1 was atropine, poison control also reported pt may need a lot of Narcan. EMS gave 2mg Narcan IV at 1050. EMS got a BG of 78. pt has a HX of nerve pain, pt took the pills to end his life due to the pain, pt says the pain is in his R wrist radiating to his R shoulder. pt hasn't seen his doctor in 2 months. pt did leave a note for his family. pt also took 2-4 pills of Zofran and 1 trazadone. pt denies previous self harm, was treated inpatient psych 10 years ago. pt denies other drugs/ alcohol today. pt is A&Ox4 Allergies amoxicillin Adverse Reaction (Intermediate, Verified 05/05/25 11:32) Rash clavulanate sumatriptan Adverse Reaction (Intermediate, Verified 05/05/25 11:32) Depression shell fish Allergy (Severe, Uncoded 05/05/25 11:32) Anaphylactic Shock Family History (Last Reviewed 05/05/25 @ 14:07 by Emelina Meyer, AUTOMOBILE AND PROPERTY UNDERWRITER) Father Morbid obesity Acute myocardial infarction CHF (congestive heart failure) A-fib Diabetes mellitus Chronic kidney disease Mother Diabetes mellitus Sibling No problems noted. Sibling Administered/Completed Medications Discontinued Medications Lactated Ringer's (Lr - Lactated Ringers Iv) Confirm Administered Dose 1,000 mls @ as directed .ROUTE .STK-MED ONE Stop: 05/05/25 12:33 Last Infusion: 05/05/25 13:35 Dose: Infused Documented By: Admin: 05/05/25 12:42 Dose: 999 mls/hr Documented By: JAKE Naloxone HCl (Naloxone Hcl Inj 2 Mg/2 Ml Amp) 2 mg IV PUSH ONCE STA Stop: 05/05/25 11:56 Last Admin: 05/05/25 12:01 Dose: 2 mg Documented By: JAKE Notes 05/05/25 12:38 Nurse Note by Leandra Villalta this RN called [place] poison control at 1230 and spoke to April. 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 the oxymorphone, hydrocodone, and levorphanol all have a peak of 1hr max. was advised to watch pt until he became his normal/stable self Initialized on 05/05/25 12:38 - END OF NOTE 05/05/25 11:25 Nurse Note by Leandra Villalta Addendum entered by Leandra Villalta RN 05/05/25 12:38: pt did not take morphine, he took Opana/oxymorphone 10mg Original Note: 5 different pills around 1015 today, took 10-15 pills from each bottle. EMS called [place] poison control and said 4 were opioids and 1 was atropine, poison control also reported pt may need a lot of Narcan. pt also took 2-4 pills of Zofran and 1 trazodone. total pills: hydromorphone 2mg morphine 10mg, 15-30 pills diphenoxylate/atropine 2.5mg levorphanol 2mg trazodone 100mg, 1 pill Zofran 8mg, 2-4 pills EMS called [place] poison control, [phone] Initialized on 05/05/25 11:25 - END OF NOTE Interventions/Assessments Cardiac Monitoring Start: 05/05/25 11:00 Freq: Status: Active Protocol: Document 05/05/25 11:32 KNW (Rec: 05/05/25 11:33 KNW [id number]) Software Support Representative Assessment Software Support Representative Yes Applied Pulse Rate (60-100) 112 H EKG Rythm Sinus Tachycardia IV / Saline Lock, Insert Start: 05/05/25 11:00 Freq: Status: Active Protocol: Document 05/05/25 11:32 KNW (Rec: 05/05/25 11:32 KNW [id number]) IV Assessment Peripheral Access Right Hand IV Catheter Access Initiated IV Insertion Date 05/05/25 IV Insertion Time 11:32 Catheter Gauge 18 IV Insertion 1 Attempts Ultrasound Used for No Placement IV Site Assessment WNL IV Care and WNL Maintenance Peripheral Access Left Antecubital IV Catheter Access Initiated Before Arrival Catheter Gauge 18 IV Site Assessment WNL IV Care and WNL Maintenance PA: Cardiovascular Assessment Start: 05/05/25 11:00 Freq: Status: Active Protocol: Document 05/05/25 11:20 KNW (Rec: 05/05/25 11:20 KNW [id number]) Cardiovascular Assessment Cardiovascular Palpitations Symptoms Skin Description Normal Color Heart Sounds Normal Jugular Vein None Distention PA: Respiratory Assessment Start: 05/05/25 11:00 Freq: Status: Active Protocol: Document 05/05/25 11:20 KNW (Rec: 05/05/25 11:20 KNW [id number]) Respiratory Assessment Symptoms None Effort Normal Pattern Regular Depth Normal Chest Expansion Symmetrical Cough Description None Sputum Amount None Oxygen Delivery Oxygen Delivery Room Air Pulse Oximetry (90- 94 100) Last Vital Signs Temperature 98.2 F 05/05/25 11:04 Pulse Rate 99 05/05/25 14:17 Respiratory Rate 15 05/05/25 14:17 Pulse Oximetry 92 05/05/25 14:17 Blood Pressure 110/63 05/05/25 14:17 Blood Pressure Mean 77 05/05/25 14:17 Blood Pressure Position Supine 05/05/25 11:04 Oxygen Delivery Nasal Cannula 05/05/25 12:18 Oxygen Flow Rate 2 05/05/25 12:18 Weight 94.2 kg 05/05/25 11:04 Last Result - Abnormals Only Neut % (Auto) 77.3 % (45.5-73.1) H 05/05/25 11:34 Lymph % (Auto) 11.4 % (18.3-44.2) L 05/05/25 11:34 Lymph # (Auto) 0.83 K/mm3 (0.9-3.2) L 05/05/25 11:34 Abs Immat Gran (auto) 0.04 K/mm3 (0.00-0.031) H 05/05/25 11:34 Glucose 151 mg/dL (65-110) H 05/05/25 11:34 Salicylates < 1.0 mg/dL (2-20) L 05/05/25 11:34 Urine Opiates Screen Positive (Negative) A 05/05/25 12:05 Acetaminophen < 10 ug/mL (10-30) L 05/05/25 11:34 Most Recent Suicide Severity Rating Suicide Severity Rating HIGH RISK 05/05/25 11:16
[2025-05-05] MEDS: LACTATED RINGERS 1,000 ML 999 ML IV CONT ×2 (15:20→16:05)
--- NOTE | 2025-05-05 16:00 | ECG_ITS ---
Test Date: 2025-05-05 16:22:33 Measurements Intervals [place] Rate: 80 P: 22 GA: 162 QRS: -8 QRSD: 92 T: -6 QT: 365 QTc: 421 Interpretive Statements SINUS RHYTHM VOLTAGE CRITERIA FOR LVH BORDERLINE ST-T WAVE ABNORMALITY- INFERIOR LEADS BORDERLINE ECG Compared to ECG 05/05/2025 11:08:14 HEART RATE HAS DECREASED Electronically Signed On 05-05-2025 18:25:14 THERAPIST RRT by Benito Farrar D.O.
--- NOTE | 2025-05-05 16:18 | PC.NURSE ---
Spoke with Niurka at [facility]. Case #[id number]. Niurka recommends continuing supportive care and monitoring
[2025-05-05] MEDS: LACTATED RINGERS 1,000 ML 100 ML IV CONT (17:29)
[2025-05-05] MEDS: NALOXONE HCL INJ 2 MG/2 ML AMP 1 MG IV PUSH (18:53)
[2025-05-05] MEDS: DOXYCYCLINE HYCLATE 100 MG TABLET PO (20:08)
--- NOTE | 2025-05-05 22:20 | PC.NURSE ---
This RN spoke with Marla at [place] [facility]. Notified them of speaking with [place] [facility] as well. They said to only update [place] [facility] and they will communicate together.
[2025-05-06] VITALS (8 sets, daily range): BP systolic 96–114; BP diastolic 56–77; PULSE 60–97; RESP 13–21; TEMP 36.7–37.2; O2SAT 90–100
[2025-05-06] MEDS: DOXYCYCLINE HYCLATE 100 MG TABLET PO ×2 (09:00→20:19)
[2025-05-06] MEDS: FLUTICASONE PROPIONATE 0.05% NA SPR 16 GM BTL (*BKC) 1 SPRAY NASAL (09:00)
--- NOTE | 2025-05-06 11:09 | P.PNIM_ITS ---
Assessment and Plan Assessment and Plan (1) Intentional overdose: Qualifiers: Encounter type: initial encounter Qualified Code(s): T50.902A - Poisoning by unspecified drugs, medicaments and biological substances, intentional self-harm, initial encounter Code(s): T50.902A - Poisoning by unspecified drugs, medicaments and biological substances, intentional self-harm, initial encounter Status: Acute Assessment and Plan: Patient had an intentional overdose this morning at 10:15 a.m. multiple pills were opiates for which he received 2 mg IV of Narcan per EMS at 10:50 a.m.. Received a 2nd dose of 2 mg of Narcan at [facility] at 12:00 p.m. Patient took the following (10-15 pills per bottle unless specifically listed): hydromorphone 2mg opana/oxymorphone 10mg 10mg, 15-30 pills diphenoxylate/atropine 2.5mg levorphanol 2mg trazodone 100mg, 1 pill zofran 8mg, 2-4 pills Cited that the pain in his right wrist that radiates into his right shoulder (previously diagnosed with CRPS) is the reason for the overdose and it has been worsening his depression. Additionally he sites recently being diagnosed with pneumonia which has been a recurrence, states that he believes because he has had pneumonia multiple times that when he gets in the future it will be worse each time which also increases depression. He was following with a local therapist/psychiatrist, however he was fired from their services mid March due to an incident in office where he was able to access his own health [employer]/other clients. He has no previous history of suicide attempt. Has previously been treated at a psychiatric facility inpatient 10 years ago for suicidal ideation when he was 1st diagnosis CRPS. 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 the oxymorphone, hydrocodone, and levorphanol all have a peak of 1hr max. was advised to watch pt until he became his normal/stable self. 5089. - monitor neurologic status Q1H and for respiratory depression, on continuous pulse ox and admitted to the ICU under IMU status - Narcan 2 mg IV x1 p.r.n. for sedation/respiratory depression >> patient evaluated at 6:30 p.m. and very somnolent, very mild respiratory depression noted. Patient subsequently given 1 mg of Narcan IV and now able to sustain wakefulness and no longer requiring nasal cannula. - will need psychiatric evaluation once he is clinically stable - suicide precautions - given patient took 2-4 pills of 8 mg Zofran, will recheck EKG to re-evaluate QT interval at 4:00 p.m. - VS in the ED reviewed, patient did have mild hypoxia with an O2 sat of 89% on room air. Subsequently placed on 2 L nasal cannula. Continue to maintain O2 sat greater than 92%. - IV fluids: 2L boluls -> 100 mL/hr x1L - initially placed on a full liquid diet for CC reasons as he was somnolent, however this has resolved with the 3rd dose of Narcan and patient was transitioned to a regular diet Patient is medically stable, will consult crisis management and care coordination (2) CRPS (complex regional pain syndrome type I): Qualifiers: Complex regional pain syndrome affected site: upper extremity Laterality: right Qualified Code(s): G90.511 - Complex regional pain syndrome I of right upper limb Code(s): G90.50 - Complex regional pain syndrome I, unspecified Status: Acute Assessment and Plan: Patient has history of complex regional pain syndrome to his right wrist that radiates into his right shoulder. Indicated that the constant pain was a large factor and his intentional overdose today. Prescribed multiple opiates outpatient. Took these medications as an intentional overdose. - home medications held, patient requesting gabapentin be resumed as soon as appropriate as well as his Cymbalta Will restart his gabapentin, patient is complaining of right hand pain Plan Diet: Regular diet Precautions: Suicide DVT Prophylaxis: IV fluids: Status post IV fluid Lines/Tubes: PIV Code Status: full code Subjective Date/time seen: 05/06/25 11:09 Interval history: 45-year-old gentleman with history of chronic regional pain syndrome, Wartenberg syndrome, hypogonadism and arthritis presented with intentional medication overdose. 05/06/2025: Seeing patient for the hospitalist group Patient seen and examined this morning, is awake, alert, oriented. He denies any suicidal or homicidal ideation at this time. Hemodynamically stable, states his right hand is starting to hurt again, requesting for gabapentin. Patient does see a pain specialist. Hemodynamically stable, adequate urine output, hemodynamically stable, afebrile. Tolerating diet Review of Systems Review of Systems: All systems reviewed & are unremarkable except as noted in HPI and below Exam Narrative: Pleasant gentleman currently in no acute distress Const: General: comfortable and no acute distress Eyes: General: appearance normal, both eyes and all related structures Sclera: sclerae normal EOM: EOMs intact bilaterally Neck: Neck: supple Resp: Effort & Inspection: normal respiratory effort Auscultation: clear to auscultation bilaterally Other: No wheezing Cardio: Rate: regular rate Rhythm: regular rhythm Other: S1-S2 is normal, no murmurs GI: Other: Abdomen soft, nondistended, nontender. Normoactive bowel sounds in all quadrants. Skin: General skin exam: normal color and no rashes or lesions noted Wounds: no wounds Neuro: Speech: normal speech Motor exam (neuro): 5/5 motor strength present throughout Sensory Exam: normal sensation Other: A&O x4 Extrem: General: normal to inspection Psych: Mental Status: mental status grossly normal Objective Data Vital Signs Vital Signs: Vital Signs - 24 hr 05/05/25 11:20 05/05/25 11:20 05/05/25 11:32 Temperature Pulse Rate 112 H Respiratory Rate 20 Blood Pressure Pulse Oximetry 94 Oxygen Delivery Room Air Oxygen Flow Rate 05/05/25 11:32 05/05/25 11:45 05/05/25 12:00 Temperature Pulse Rate 111 H 111 H 115 H Respiratory Rate 18 21 H 20 Blood Pressure 124/82 126/78 118/84 Pulse Oximetry 90 89 L 93 Oxygen Delivery Oxygen Flow Rate 05/05/25 12:16 05/05/25 12:18 05/05/25 12:30 Temperature Pulse Rate 123 H 119 H Respiratory Rate 22 H 20 Blood Pressure 122/73 132/81 Pulse Oximetry 96 94 99 Oxygen Delivery Nasal Cannula Oxygen Flow Rate 2 05/05/25 12:47 05/05/25 13:02 05/05/25 13:18 Temperature Pulse Rate 104 H 115 H 115 H Respiratory Rate 23 H 26 H 24 H Blood Pressure 95/76 L 112/62 107/71 Pulse Oximetry 99 98 92 Oxygen Delivery Oxygen Flow Rate 05/05/25 13:32 05/05/25 13:46 05/05/25 14:02 Temperature Pulse Rate 107 H 104 H 106 H Respiratory Rate 22 H 21 H 18 Blood Pressure 107/65 113/68 109/63 Pulse Oximetry 93 91 93 Oxygen Delivery Oxygen Flow Rate 05/05/25 14:17 05/05/25 15:00 05/05/25 15:30 Temperature 98.2 F Pulse Rate 99 109 H Respiratory Rate 15 11 L Blood Pressure 110/63 110/88 Pulse Oximetry 92 94 93 Oxygen Delivery Nasal Cannula Oxygen Flow Rate 2 05/05/25 16:00 05/05/25 16:08 05/05/25 18:00 Temperature Pulse Rate 89 71 Respiratory Rate Blood Pressure Pulse Oximetry 93 Oxygen Delivery Nasal Cannula Oxygen Flow Rate 2 05/05/25 19:08 05/05/25 20:00 05/05/25 20:00 Temperature 97.7 F Pulse Rate 76 89 Respiratory Rate 16 Blood Pressure 105/56 L Pulse Oximetry 100 100 Oxygen Delivery Nasal Cannula Oxygen Flow Rate 1 05/05/25 22:00 05/06/25 00:00 05/06/25 00:00 Temperature 98.3 F Pulse Rate 86 79 Respiratory Rate 17 Blood Pressure 113/62 Pulse Oximetry 92 90 Oxygen Delivery Room Air Oxygen Flow Rate 05/06/25 00:00 05/06/25 02:00 05/06/25 04:00 Temperature Pulse Rate 76 72 Respiratory Rate Blood Pressure Pulse Oximetry Oxygen Delivery Room Air Oxygen Flow Rate 05/06/25 04:00 05/06/25 04:00 05/06/25 06:00 Temperature 98.0 F Pulse Rate 66 60 66 Respiratory Rate 13 Blood Pressure 96/56 L Pulse Oximetry 93 Oxygen Delivery Oxygen Flow Rate 05/06/25 08:00 05/06/25 08:00 05/06/25 10:00 Temperature 98.0 F Pulse Rate 86 78 97 Respiratory Rate 14 Blood Pressure 105/73 Pulse Oximetry 99 Oxygen Delivery Oxygen Flow Rate Intake/Output Intake/Output: Intake & Output 05/03/25 05/04/25 05/05/25 05/06/25 23:59 23:59 23:59 23:59 Intake Total 3150 2040 Output Total 800 Balance 2350 2040 Meds/Results Medications: Active Medications Generic Name Dose Route Start Last Admin Trade Name Freq PRN Reason Stop Dose Admin Acetaminophen 650 mg 05/05/25 14:20 Acetaminophen 325 Mg Tablet PO Q6H PRN Mild Pain (1-3) or Fever Albuterol 2 puff 05/05/25 18:44 Albuterol Sulfate (*Sp) Aerosol 1 Puff INHALATION Q6-8H PRN Shortness Of Breath Or Wheezing Calcium Carbonate 200 mg 05/05/25 14:20 Calcium Carbonate (Tums) 500 Mg (200 Mg Elemental) PO Q6H PRN Indigestion Doxycycline Hyclate 100 mg 05/05/25 21:00 05/06/25 09:00 Doxycycline Hyclate 100 Mg Tablet PO 05/08/25 23:55 100 mg Q12HR ROMANA Administration Fluticasone Propionate 1 spray 05/06/25 09:00 05/06/25 09:00 Fluticasone Propionate 0.05% Na Spr 16 Gm Btl (*Bkc) NASAL 1 spray DAILY ROMANA Administration Naloxone HCl 2 mg 05/05/25 14:19 Naloxone Hcl Inj 2 Mg/2 Ml Amp IV PUSH ONCE PRN Sedation or Resp Depression Labs Labs: Laboratory Results - last 24 hr 05/05/25 05/05/25 05/05/25 11:34 11:34 11:34 WBC 7.3 RBC 4.98 Hgb 15.7 Hct 45.5 MCV 91.4 MCH 31.5 MCHC 34.5 RDW 13.1 Plt Count 243 MPV 9.7 Immature Gran % (Auto) 0.5 Neut % (Auto) 77.3 H Lymph % (Auto) 11.4 L [place] % (Auto) 7.8 Eos % (Auto) 2.5 Baso % (Auto) 0.5 Lymph # (Auto) 0.83 L [place] # (Auto) 0.6 Eos # (Auto) 0.2 Baso # (Auto) 0.0 Abs Immat Gran (auto) 0.04 H Absolute Neuts (auto) 5.7 Absolute Nucleated RBC 0.000 Nucleated RBC % 0.0 PT 13.5 INR 1.0 APTT 29.0 Sodium 138 Potassium 3.4 Chloride 104 Carbon Dioxide 24 Anion Gap 10 BUN 15 Creatinine 0.96 Estim Creat Clear Calc 88 Estimated GFR > 60 Glucose 151 H Lactic Acid 1.6 Calcium 9.0 Total Bilirubin 0.8 AST 24 ALT 28 Alkaline Phosphatase 71 Total Protein 7.9 Albumin 4.2 Urine Color Urine Appearance Urine pH Ur Specific [place] Urine Protein Urine Glucose (UA) Urine Ketones Ur Blood (Man) Urine Nitrate Urine Bilirubin Urine Urobilinogen Leukocyte Esterase Rfl Salicylates < 1.0 L Cancelled Urine Opiates Screen Urine Methadone Screen Acetaminophen Cancelled < 10 L Ur Barbiturates Screen Ur Phencyclidine Scrn Ur Amphetamine Screen U Benzodiazepines Scrn Urine Cocaine Screen U Cannabinoids Screen Ethyl Alcohol < 10 Influenza A (RT-PCR) Influenza B (RT-PCR) RSV (RT-PCR) SARS-CoV-2 RNA (RT-PCR) 05/05/25 05/05/25 11:36 12:05 WBC RBC Hgb Hct MCV MCH MCHC RDW Plt Count MPV Immature Gran % (Auto) Neut % (Auto) Lymph % (Auto) [place] % (Auto) Eos % (Auto) Baso % (Auto) Lymph # (Auto) [place] # (Auto) Eos # (Auto) Baso # (Auto) Abs Immat Gran (auto) Absolute Neuts (auto) Absolute Nucleated RBC Nucleated RBC % PT INR APTT Sodium Potassium Chloride Carbon Dioxide Anion Gap BUN Creatinine Estim Creat Clear Calc Estimated GFR Glucose Lactic Acid Calcium Total Bilirubin AST ALT Alkaline Phosphatase Total Protein Albumin Urine Color Yellow Urine Appearance Clear Urine pH 6.0 Ur Specific [place] 1.011 Urine Protein Negative Urine Glucose (UA) Negative Urine Ketones Negative Ur Blood (Man) Negative Urine Nitrate Negative Urine Bilirubin Negative Urine Urobilinogen 0.2 Leukocyte Esterase Rfl Negative Salicylates Urine Opiates Screen Positive A Urine Methadone Screen Negative Acetaminophen Ur Barbiturates Screen Negative Ur Phencyclidine Scrn Negative Ur Amphetamine Screen Negative U Benzodiazepines Scrn Negative Urine Cocaine Screen Negative U Cannabinoids Screen Negative Ethyl Alcohol Influenza A (RT-PCR) Negative Influenza B (RT-PCR) Negative RSV (RT-PCR) Negative SARS-CoV-2 RNA (RT-PCR) Negative Quality VTE Prophylaxis VTE prophylaxis: mechanical ordered
[2025-05-06] MEDS: GABAPENTIN 300 MG CAPSULE 600 MG PO ×2 (12:07→20:19)
--- NOTE | 2025-05-06 20:00 | PC.NURSE ---
This RN spoke with Glenny from [facility]. Update given.
[2025-05-06] MEDS: CALCIUM CARBONATE (TUMS) 500 MG (200 MG ELEMENTAL) PO (22:48)
[2025-05-07] VITALS: BP 118/73; PULSE 83; RESP 16; TEMP 37.2; O2SAT 100
[2025-05-07 04:41] LABS: Hematocrit 43.3 % (42.0-52.0); Hemoglobin 14.5 g/dL (14.0-18.0); Immature Granulocyte Percent A 1.0 % (0-0.5); Lymphocytes Absolute Auto 2.16 K/mm3 (0.9-3.2); Mean Corpuscular HGB Conc 33.5 g/dl (32-36); Mean Corpuscular Hemoglobin 31.3 pg (26-34); Mean Corpuscular Volume 93.5 fl (80-100); Nucleated Red Blood Cells Absolute Auto 0.000 K/mm3 (0.0-0.012); Nucleated Red Blood Cells Perc 0.0 % (0.0-0.2); Platelet Count Result 284 k/mm3 (150-375); Red Blood Count 4.63 M/mm3 (4.6-6.20); White Blood Count 6.2 K/mm3 (4.5-10.0)
[2025-05-07] MEDS: CALCIUM CARBONATE (TUMS) 500 MG (200 MG ELEMENTAL) PO ×2 (04:49→20:34)
[2025-05-07 05:03] LABS: Anion Gap 8 mmol/L (4-12); Blood Urea Nitrogen 11 mg/dL (9-20); Calcium 8.9 mg/dL (8.4-10.2); Carbon Dioxide 26 mmol/L (22-30); Chloride 107 mmol/L (98-107); Estimated CRCL calculation 110 ml/min; Estimated Glomerular Filt Rate > 60; Glucose 102 mg/dL (65-110); Magnesium 2.3 mg/dL (1.6-2.3); Potassium 3.6 mmol/L (3.4-5.0); Sodium 141 mmol/L (137-145)
[2025-05-07 08:00] VITALS: BP 131/83; PULSE 80; RESP 20; TEMP 36.8; O2SAT 97
[2025-05-07] MEDS: DOXYCYCLINE HYCLATE 100 MG TABLET PO (08:16)
[2025-05-07] MEDS: GABAPENTIN 300 MG CAPSULE 600 MG PO ×2 (08:16→20:34)
[2025-05-07] MEDS: FLUTICASONE PROPIONATE 0.05% NA SPR 16 GM BTL (*BKC) 1 SPRAY NASAL (08:16)
--- NOTE | 2025-05-07 11:03 | PC.NURSE ---
The patient has a spinal cord stimulator, a device that intercepts pain signals with electrical impulses, reducing reliance on narcotics. This device does not administer medication. Device only needs to be charged monthly. Patient stated device was charged last week.
--- NOTE | 2025-05-07 13:46 | P.PNIM_ITS ---
Assessment and Plan Assessment and Plan (1) Intentional overdose: Qualifiers: Encounter type: initial encounter Qualified Code(s): T50.902A - Poisoning by unspecified drugs, medicaments and biological substances, intentional self-harm, initial encounter Code(s): T50.902A - Poisoning by unspecified drugs, medicaments and biological substances, intentional self-harm, initial encounter Status: Acute Assessment and Plan: Patient had an intentional overdose this morning at 10:15 a.m. multiple pills were opiates for which he received 2 mg IV of Narcan per EMS at 10:50 a.m.. Received a 2nd dose of 2 mg of Narcan at [facility] at 12:00 p.m. Patient took the following (10-15 pills per bottle unless specifically listed): hydromorphone 2mg opana/oxymorphone 10mg 10mg, 15-30 pills diphenoxylate/atropine 2.5mg levorphanol 2mg trazodone 100mg, 1 pill zofran 8mg, 2-4 pills Cited that the pain in his right wrist that radiates into his right shoulder (previously diagnosed with CRPS) is the reason for the overdose and it has been worsening his depression. Additionally he sites recently being diagnosed with pneumonia which has been a recurrence, states that he believes because he has had pneumonia multiple times that when he gets in the future it will be worse each time which also increases depression. He was following with a local therapist/psychiatrist, however he was fired from their services mid March due to an incident in office where he was able to access his own health [employer]/other clients. He has no previous history of suicide attempt. Has previously been treated at a psychiatric facility inpatient 10 years ago for suicidal ideation when he was 1st diagnosis CRPS. 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 the oxymorphone, hydrocodone, and levorphanol all have a peak of 1hr max. was advised to watch pt until he became his normal/stable self. 5089. - monitor neurologic status Q1H and for respiratory depression, on continuous pulse ox and admitted to the ICU under IMU status - Narcan 2 mg IV x1 p.r.n. for sedation/respiratory depression >> patient evaluated at 6:30 p.m. and very somnolent, very mild respiratory depression noted. Patient subsequently given 1 mg of Narcan IV and now able to sustain wakefulness and no longer requiring nasal cannula. - will need psychiatric evaluation once he is clinically stable - suicide precautions - given patient took 2-4 pills of 8 mg Zofran, will recheck EKG to re-evaluate QT interval at 4:00 p.m. - VS in the ED reviewed, patient did have mild hypoxia with an O2 sat of 89% on room air. Subsequently placed on 2 L nasal cannula. Continue to maintain O2 sat greater than 92%. - IV fluids: 2L boluls -> 100 mL/hr x1L - initially placed on a full liquid diet for CC reasons as he was somnolent, however this has resolved with the 3rd dose of Narcan and patient was transitioned to a regular diet Patient is medically stable, appreciate crisis management and care coordination evaluation. Pain patient will be going to a psych facility voluntarily, awaiting placement (2) CRPS (complex regional pain syndrome type I): Qualifiers: Complex regional pain syndrome affected site: upper extremity Laterality: right Qualified Code(s): G90.511 - Complex regional pain syndrome I of right upper limb Code(s): G90.50 - Complex regional pain syndrome I, unspecified Status: Acute Assessment and Plan: Patient has history of complex regional pain syndrome to his right wrist that radiates into his right shoulder. Indicated that the constant pain was a large factor and his intentional overdose today. Prescribed multiple opiates outpatient. Took these medications as an intentional overdose. - home medications held, patient requesting gabapentin be resumed as soon as appropriate as well as his Cymbalta 05/06: Restarted gabapentin, patient is complaining of right hand pain Plan Diet: Regular diet Precautions: Suicide DVT Prophylaxis: IV fluids: Status post IV fluid Lines/Tubes: PIV Code Status: full code Subjective Date/time seen: 05/07/25 13:46 Interval history: 45-year-old gentleman with history of chronic regional pain syndrome, Wartenberg syndrome, hypogonadism and arthritis presented with intentional medication overdose. 05/07/2025: Seeing patient for the hospitalist group Patient seen and examined this morning, is awake, alert, oriented. Feeling negative anxious this morning. Complains of his right hand hurting. Hemodynamically stable, adequate urine output, hemodynamically stable, afebrile. Tolerating diet Review of Systems Review of Systems: All systems reviewed & are unremarkable except as noted in HPI and below Exam Narrative: Pleasant gentleman currently in no acute distress Const: General: comfortable and no acute distress Eyes: General: appearance normal, both eyes and all related structures Sclera: sclerae normal EOM: EOMs intact bilaterally Neck: Neck: supple Resp: Effort & Inspection: normal respiratory effort Auscultation: clear to auscultation bilaterally Other: No wheezing Cardio: Rate: regular rate Rhythm: regular rhythm Other: S1-S2 is normal, no murmurs GI: Other: Abdomen soft, nondistended, nontender. Normoactive bowel sounds in all quadrants. Skin: General skin exam: normal color and no rashes or lesions noted Wounds: no wounds Neuro: Speech: normal speech Motor exam (neuro): 5/5 motor strength present throughout Sensory Exam: normal sensation Other: A&O x4 Extrem: General: normal to inspection Psych: Mental Status: mental status grossly normal Objective Data Vital Signs Vital Signs: Vital Signs - 24 hr 05/06/25 16:00 05/06/25 20:00 05/06/25 20:45 Temperature 98.9 F Pulse Rate 87 Respiratory Rate 21 H Blood Pressure 114/77 Pulse Oximetry 99 100 Oxygen Delivery Room Air Room Air 05/07/25 00:00 05/07/25 08:00 Temperature 98.9 F 98.2 F Pulse Rate 83 80 Respiratory Rate 16 20 Blood Pressure 118/73 131/83 Pulse Oximetry 100 97 Oxygen Delivery Intake/Output Intake/Output: Intake & Output 05/04/25 05/05/25 05/06/25 05/07/25 23:59 23:59 23:59 23:59 Intake Total 3150 2720 840 Output Total 800 Balance 2350 2720 840 Meds/Results Medications: Active Medications Generic Name Dose Route Start Last Admin Trade Name Freq PRN Reason Stop Dose Admin Acetaminophen 650 mg 05/05/25 14:20 Acetaminophen 325 Mg Tablet PO Q6H PRN Mild Pain (1-3) or Fever Albuterol 2 puff 05/05/25 18:44 Albuterol Sulfate (*Sp) Aerosol 1 Puff INHALATION Q6-8H PRN Shortness Of Breath Or Wheezing Calcium Carbonate 200 mg 05/05/25 14:20 05/07/25 04:49 Calcium Carbonate (Tums) 500 Mg (200 Mg Elemental) PO 200 mg Q6H PRN Administration Indigestion Fluticasone Propionate 1 spray 05/06/25 09:00 05/07/25 08:16 Fluticasone Propionate 0.05% Na Spr 16 Gm Btl (*Bkc) NASAL 1 spray DAILY ROMANA Administration Gabapentin 600 mg 05/06/25 11:15 05/07/25 08:16 Gabapentin 300 Mg Capsule PO 600 mg Q12HR ROMANA Administration Naloxone HCl 2 mg 05/05/25 14:19 Naloxone Hcl Inj 2 Mg/2 Ml Amp IV PUSH ONCE PRN Sedation or Resp Depression Labs Labs: Laboratory Results - last 24 hr 05/07/25 05/07/25 04:25 09:07 WBC 6.2 RBC 4.63 Hgb 14.5 Hct 43.3 MCV 93.5 MCH 31.3 MCHC 33.5 RDW 12.9 Plt Count 284 MPV 9.6 Immature Gran % (Auto) 1.0 H Neut % (Auto) 50.8 Lymph % (Auto) 34.7 [place] % (Auto) 7.9 Eos % (Auto) 4.5 H Baso % (Auto) 1.1 Lymph # (Auto) 2.16 [place] # (Auto) 0.5 Eos # (Auto) 0.3 Baso # (Auto) 0.1 Abs Immat Gran (auto) 0.06 H Absolute Neuts (auto) 3.2 Absolute Nucleated RBC 0.000 Nucleated RBC % 0.0 Sodium 141 Potassium 3.6 Chloride 107 Carbon Dioxide 26 Anion Gap 8 BUN 11 Creatinine 0.87 Estim Creat Clear Calc 110 Estimated GFR > 60 Glucose 102 POC Capillary Glucose 79 Calcium 8.9 Phosphorus 4.5 Magnesium 2.3 Quality VTE Prophylaxis VTE prophylaxis: mechanical ordered
[2025-05-07 16:00] VITALS: BP 118/86; PULSE 81; RESP 17; TEMP 36.4; O2SAT 94
[2025-05-07 22:37] VITALS: PULSE 78; O2SAT 95
[2025-05-07 23:21] VITALS: BP 110/76; PULSE 82; RESP 20; TEMP 36.7; O2SAT 99
[2025-05-08] MEDS: ACETAMINOPHEN 325 MG TABLET 650 MG PO (01:20)
[2025-05-08 04:07] LABS: Hematocrit 45.3 % (42.0-52.0); Hemoglobin 15.4 g/dL (14.0-18.0); Immature Granulocyte Percent A 0.8 % (0-0.5); Lymphocytes Absolute Auto 1.80 K/mm3 (0.9-3.2); Mean Corpuscular HGB Conc 34.0 g/dl (32-36); Mean Corpuscular Hemoglobin 31.2 pg (26-34); Mean Corpuscular Volume 91.7 fl (80-100); Nucleated Red Blood Cells Absolute Auto 0.000 K/mm3 (0.0-0.012); Nucleated Red Blood Cells Perc 0.0 % (0.0-0.2); Platelet Count Result 302 k/mm3 (150-375); Red Blood Count 4.94 M/mm3 (4.6-6.20); White Blood Count 7.6 K/mm3 (4.5-10.0)
[2025-05-08 04:20] LABS: Anion Gap 7 mmol/L (4-12); Blood Urea Nitrogen 12 mg/dL (9-20); Calcium 9.3 mg/dL (8.4-10.2); Carbon Dioxide 24 mmol/L (22-30); Chloride 109 mmol/L (98-107); Estimated CRCL calculation 121 ml/min; Estimated Glomerular Filt Rate > 60; Glucose 115 mg/dL (65-110); Magnesium 2.3 mg/dL (1.6-2.3); Potassium 3.7 mmol/L (3.4-5.0); Sodium 140 mmol/L (137-145)
--- NOTE | 2025-05-08 07:43 | PC.NURSE ---
Report was called to Dixon ALLAN at [facility] overnight ([phone].) I was advised patient would need to come after 7am. Bed 226A, accepting Dr is Dr. Acosta. Patient called his last night & asked for her to bring up his home medications to take with him per request of [facility].
[2025-05-08 09:00] VITALS: BP 111/80; PULSE 85; RESP 16; TEMP 36.8; O2SAT 100
[2025-05-08] MEDS: FLUTICASONE PROPIONATE 0.05% NA SPR 16 GM BTL (*BKC) 1 SPRAY NASAL (09:05)
[2025-05-08] MEDS: GABAPENTIN 300 MG CAPSULE 600 MG PO (09:11)
[2025-05-08] MEDS: CALCIUM CARBONATE (TUMS) 500 MG (200 MG ELEMENTAL) PO (09:12)
--- NOTE | 2025-05-08 09:25 | P.TS_ITS ---
Transfer Discharge Sum: Prov Provider Date of admission: 05/05/25 12:59 Primary care physician: Alejandro Flores MD Admitting clinician: Keven Barajas MD Attending physician on discharge: Cachorro Slaughter Discharging clinician: Cachorro Slaughter Anticipated date of transfer: 05/08/25 Receiving physician/facility: [facility] DS: Admitting Diagnosis Discharge Date 05/08/25 Admitting Diagnosis Intentional suicidal overdose Transfer Discharge Sum: Med Medications Active and Home Medications: Home Medications buprenorphine HCl 750 mcg buccal film (Belbuca) 750 mcg buccal Q12H 06/23/19 [History Confirmed 05/05/25] fluticasone propionate 50 mcg/actuation nasal spray,suspension 1 spray intranasal DAILY 10/04/21 [History Confirmed 05/05/25] levorphanol tartrate 2 mg tablet 2 mg PO .Q6HR PRN pain 10/04/21 [History Confirmed 05/05/25] albuterol sulfate 90 mcg/actuation aerosol inhaler 2 inh inhalation Q6-8H PRN shortness of breath or wheezing #6.7 grams 06/05/23 [Rx Confirmed 05/05/25] gabapentin 600 mg tablet 600 mg PO BID #90 tabs 12/30/24 [Rx Confirmed 05/05/25] testosterone cypionate 200 mg/mL intramuscular oil (Depo-Testosterone) 300 mg (1.5 mL) IM .every 2weeks #10 mL 12/30/24 [Rx Confirmed 05/05/25] rimegepant 75 mg disintegrating tablet (Nurtec ODT) 75 mg PO Q48H PRN migraine headache #8 tabs 05/03/25 [Rx Confirmed 05/05/25] clonazepam 0.5 mg tablet 0.25 mg PO DAILY 05/05/25 [History Confirmed 05/06/25] duloxetine 60 mg capsule,delayed release (Cymbalta) 60 mg PO DAILY 05/05/25 [History Confirmed 05/05/25] azelastine 137 mcg (0.1 %) nasal spray 137 mcg intranasal DAILY 05/06/25 [History Confirmed 05/06/25] famotidine 40 mg tablet 40 mg PO HS 05/06/25 [History Confirmed 05/06/25] fexofenadine 180 mg tablet (Haritha Allergy) 180 mg PO DAILY 05/06/25 [History Confirmed 05/06/25] montelukast 10 mg tablet 10 mg PO [id number] 05/06/25 [History Confirmed 05/06/25] Transfer Discharge Sum: Hosp Hospital Course Hospital course: Nino Sloan is a 45 year old male with past medical history of chronic regional pain syndrome, what in both syndrome, hypogonadism, arthritis was admitted to [facility] on 05/05 with intentional overdose with 6 different medications 10-15 pills each. Poison control was notified. Patient was given Narcan.. Workup in the ER showed No leukocytosis, no anemia, normal coags, no significant electrolyte derangements, creatinine 0.96 and GFR >60, glucose 151, and UA unremarkable. Salicylates and acetaminophen negative. UDS positive for opiates. Ethanol negative. Viral PCR negative. EKG showed sinus tachycardia, rate 110, possible left atrial enlargement, LVH and ST-T changes, borderline T-wave abnormality in anterolateral/inferior leads. QTC 316/QTC 428. Patient was monitored for his neurological status and respiratory depression along with continuous pulse oximetry on step-down unit. Suicide precautions were in place with this sitter. Patient was given IV fluids. After 48 hours of observation patient was deemed medically stable and care coordination consulted. Patient was evaluated and then recommended for inpatient psych psych facility at admission for further evaluation and management of his depression. Patient is accepted at [facility] and is being transferred today for further evaluation management in a stable condition. Patient Condition: Improved Time Spent with Patient Time attestation: Total time spent providing and/or coordinating transfer services: Total time spent: Less than 30 minutes Exam Narrative: Narrative: Pleasant gentlema n currently in no acute distress Const: General: comfortab le and no acute di stress Eyes: General: appearanc e normal, both eye s and all related structures Sclera : sclerae normal EOM: EOMs intact b ilaterally Neck: Neck: supple Resp: Effort & Inspectio n: normal respirat ory effort Auscul tation: clear to a uscultation bilate rally Other: No wheezing Cardio: Rate: regular rate Rhythm: regular rhythm Other: S 1-S2 is normal, no murmurs GI: Other: Abdomen s oft, nondistended, nontender. Normo active bowel sound s in all quadrants . Skin: General skin exam: normal color and no rashes or lesio ns noted Wounds: no wounds Neuro: Speech: normal spe ech Motor exam (n euro): 5/5 motor s trength present th roughout Sensory Exam: normal sensa tion Other: A&O x4 Extrem: General: normal to inspection Psych: Mental Status: men nirav status grossly normal DS: Data Data Completed and Pending Labs on day of discharge: Labs from last 24 hours 05/08/25 03:43 WBC 7.6 RBC 4.94 Hgb 15.4 Hct 45.3 MCV 91.7 MCH 31.2 MCHC 34.0 RDW 12.8 Plt Count 302 MPV 9.5 Immature Gran % (Auto) 0.8 H Neut % (Auto) 63.6 Lymph % (Auto) 23.6 [place] % (Auto) 8.5 Eos % (Auto) 2.6 Baso % (Auto) 0.9 Lymph # (Auto) 1.80 [place] # (Auto) 0.7 H Eos # (Auto) 0.2 Baso # (Auto) 0.1 Abs Immat Gran (auto) 0.06 H Absolute Neuts (auto) 4.9 Absolute Nucleated RBC 0.000 Nucleated RBC % 0.0 Sodium 140 Potassium 3.7 Chloride 109 H Carbon Dioxide 24 Anion Gap 7 BUN 12 Creatinine 0.79 Estim Creat Clear Calc 121 Estimated GFR > 60 Glucose 115 H Calcium 9.3 Phosphorus 4.4 Magnesium 2.3
== END 2025-05-08 09:20 ==
LOC: ANHED 11:32 → ANHICU 17:08 → ANHIMU 05-10 07:55
PROVIDERS: Internal Medicine; Admitting Provider General Practice; Emergency Provider Emergency Medicine; PCP Family Medicine; Visit Provider Internal Medicine
DX: T50.912A Poisoning by multiple unspecified drugs, medicaments and biological substances, intentional self-harm, initial encounter (principal); G90.511 Complex regional pain syndrome I of right upper limb; M19.90 Unspecified osteoarthritis, unspecified site; E29.1 Testicular hypofunction; Z20.822 Contact with and (suspected) exposure to COVID-19; Z79.891 Long term (current) use of opiate analgesic; Z79.51 Long term (current) use of inhaled steroids; Z79.1 Long term (current) use of non-steroidal anti-inflammatories (NSAID); Z86.69 Personal history of other diseases of the nervous system and sense organs; Z96.82 Presence of neurostimulator
CPT/HCPCS: 36415; 80048; 80053; 80143; 80179; 80307; 81003; 82077; 82948; 83605; 83735; 84100; 85025; 85610; 85730; 87637; 93005; 96361; 96374; 99285; A9270; G0378; G0379; J2312; J7120